=== PATIENT | female | born 1940 | race Caucasian/White ===

== ENCOUNTER 2018-09-26 05:52 | Inpatient (IN) | payer MEDICARE ==
[2018-09-26] MEDS ORDERED: ALBUTEROL SO4 2.5/IPRATROPIUM 0.5 INH SOL 3 ML VIAL.NEB. NEB ONE (05:57)
[2018-09-26] MEDS ORDERED: NITROGLYCERIN 2% OINTMENT - 1GM PACKET TD ONE (05:57)
[2018-09-26] MEDS ORDERED: FUROSEMIDE 40 MG/4 ML INJECTABLE VIAL IVPUSH ONE (05:57)
[2018-09-26] MEDS ORDERED: methylPREDNISolone NA SUCC 125 MG/2 ML VIAL IVPUSH ONE (05:58)
[2018-09-26] MEDS ORDERED: NITROGLYCERIN 25MG/D5W 250ML 25 MG/250 ML ML IVPB SCH (06:00)
--- NOTE | 2018-09-26 06:08 | PDOC ---
Attending Attestation - Resident Resident Name: Campos Mcdermott - ED Attending Attestation I have performed the following: I have examined & evaluated the patient, The case was reviewed & discussed with the resident, I agree w/resident's findings & plan - HPI HPI: 09/26/18 06:39 78-year-old female with a history of COPD and CHF with acute onset of shortness of breath accompanied by family and arriving by ambulance in moderate respiratory distress - Physicial Exam PE: 09/26/18 06:40 GENERAL: Awake, in moderate distress HEAD: No signs of trauma EYES: ENT:clear without exudates. Moist mucosa NECK: Normal ROM, LUNGS:. moderate respiratory distress with inc work of breathing, crackles and wheezing b/l HEART: tachycardic and regular ABDOMEN: Soft, distended with large ventral hernia CHEST WALL: BACK: No midline tenderness. EXTREMITIES:. No erythema, or tenderness, 2 plus pedal edema NEUROLOGICAL: alert, o x 3 SKIN: Warm, Dry - Critical Care Time Total Critical Care Time: 60 Critical Care Statement: The care of this patient involved high complexity decision making to prevent further life threatening deterioration of the patient 's condition and/or to evaluate & treat vital organ system(s) failure or risk of failure. - Medical Decision Making 09/26/18 06:45 78-year-old female with shortness of breath Chest x-ray consistent with pulmonary edema with right pleural effusion Lasix 60 mg, nitro drip titrated from 10 mics per minute as well as slightly Medrol 125 mg and a DuoNeb have been given At 6:40 AM on reevaluation patient is improved Arterial blood gas suggests respiratory acidosis BiPAP in place with 40% oxygen, respiratory rate decreased to 2 patient's hyperventilation Plan for admission to ICU for further management Family at the bedside
[2018-09-26 06:30] LABS: BASO % 0.7 % (0-2.0); EOS % 5.5 % (0-4.5); HEMOGLOBIN 14.4 GM/dL (10.7-15.3); LYMPH % 22.1 % (8-40); MCH 31.7 pg (25.7-33.7); MCHC 32.7 g/dl (32.0-36.0); MEAN CELL VOLUME 96.8 fl (80-96); MONO % 7.8 % (3.8-10.2); NEUT % 63.9 % (42.8-82.8); PLATELET COUNT 256 K/MM3 (134-434); RBC 4.55 M/mm3 (3.60-5.2); RDW 13.1 % (11.6-15.6); WHITE BLOOD COUNT 15.4 K/mm3 (4.0-10.0)
[2018-09-26] MEDS ORDERED: ONDANSETRON 4 MG/2 ML VIAL ONE ×2 (06:31→07:41)
[2018-09-26] MEDS ORDERED: ONDANSETRON 4 MG/2 ML VIAL IVPUSH ONE ×2 (06:31→07:39)
[2018-09-26 06:34] LABS: ARTERIAL BLD GAS O2 SATURATION 95.6 % (95-98); ARTERIAL BLOOD GAS BASE EXCESS -3.1 meq/l (-2-2); ARTERIAL BLOOD GAS PCO2 67.7 mmHg (35-45); ARTERIAL BLOOD GAS PO2 95.2 mmHg (80-105); ARTERIAL BLOOD GAS pH 7.21 (7.35-7.45)
[2018-09-26 06:52] LABS: INR 0.97 (0.83-1.09); PROTHROMBIN TIME (PATIENT) 11.4 SEC (9.7-13.0)
--- NOTE | 2018-09-26 06:52 | PDOC ---
History of Present Illness - General Chief Complaint: Shortness of Breath Stated Complaint: SOB Time Seen by Provider: 09/26/18 05:54 History Source: Patient, Family, Old Records Exam Limitations: Clinical Condition - History of Present Illness Initial Comments: HPI: 78 y/o female presenting to [facility] ER in respiratory distress. Daughter at bedside reports she was called to the pts bedroom approx. 20 min prior to arrival. Pt breathing fast and complaining of difficulty breathing. Denied chest pain. Mother was in normal state of health prior to this morning. Believes mother has a h/o of CHF and COPD. Reports mother is being treated for a UTI discovered at clinic. Unknown antibiotic. Does not know if mother has undergoing cardiac testing recently. S/p angioplasty [address] [facility]. Pt does not follow with a ged tutor. PCP: Dr. Arvizu Medical Hx: - CHF - COPD - Diabetes, managed with insulin - HTN - Hypothyroidism Surgical Hx: - Hysterectomy - Appendectomy Review of Systems: Unable to obtain secondary to pt condition Physical Examination: Constitutional: Elderly adult female in acute respiratory distress. Found sitting upright on hospital bed. Alert . Unable to answer questions secondary to tachypnea. Head: Normocephalic. No obvious external signs of trauma. Cardiovascular / Chest: Tachycardic rate and regular rhythm. No murmur, rubs, clicks, or gallops. Peripheral pulses: radial pulses full. Respiratory: Breathing rapid and shallow. Retractions and abdominal breathing. Equal chest rise and fall. Decreased breath sounds throughout all cody with trace end-expiratory wheeze. Clear to auscultation bilaterally. Gastrointestinal: abdomen exam limited by large pannus. Large, easily reducible umbilical hernia. Neuro: Alert. Moving all four extremities spontaneously. Skin: Warm, dry, and intact. No diaphoresis. Psych: Affect: concerned / anxious. MDM: *Reviewed vital signs, nursing notes, and prior visit documentation (if available). 78 y/o female presenting in acute respiratory distress. Hypertensive and mildly tachycardic. Afebrile. Became hypoxia on room air. Physical exam as described above. Nonfocal. History concerning for CHF vs COPD exacerbation. BiPAP applied , which improved hypoxia. Duo nebs, solu-medrol, nitropaste, lasix, and ondansetron administered. EKG unremarkable for ischemic changes. Labs drawn. CXR obtained. Pt signed out to resident Dr. Ayala after she was verbally appraised of the pt s HPI, current ED course, and plan of management. Will f/u on pending labs and imaging. Anticipate admission. Campos Mcdermott M.D., PGY1 Emergency Medicine Resident Past History - Past Medical History Allergies/Adverse Reactions: Allergies Allergy/AdvReac Type Severity Reaction Status Date / Time Sulfa (Sulfonamide Allergy Verified 09/26/18 06:16 Antibiotics) Home Medications: Ambulatory Orders Aspirin [ASA -] 81 mg PO DAILY 09/26/18 Furosemide [Lasix -] 40 mg PO DAILY 09/26/18 Gabapentin [Neurontin -] 100 mg PO Q8H 09/26/18 Insulin Glargine,Hum.rec.anlog [Basaglar Kwikpen U-100] 50 unit SQ DAILY Insulin Lispro [Humalog] See Protocol SQ AC PRN 09/26/18 Metoprolol Succinate [Toprol XL -] 25 mg PO BID 09/26/18 Oxybutynin Chloride 5 mg PO DAILY 09/26/18 Potassium Chloride 10 meq PO DAILY 09/26/18 Amoxicillin/Potassium Clav [Augmentin 875-125 Tablet] 1 each PO BID #10 tablet 09/30/18 Atorvastatin Ca [Lipitor] 40 mg PO HS #30 tablet MDD 1 09/30/18 Insulin Detemir [Levemir Flextouch] 20 unit SQ HS #100 ml MDD 1 09/30/18 Levothyroxine [Synthroid -] 50 mcg PO DAILY@0700 #30 tablet MDD 1 09/30/18 predniSONE [Deltasone -] 30 mg PO DAILY #14 tablet MDD 3 09/30/18 Cardiac Disorders: Yes ([facility]) COPD: Yes Diabetes: Yes HTN: Yes Hypercholesterolemia: Yes Thyroid Disease: Yes - Surgical History Appendectomy: Yes Cardiac Surgery: Yes (angioplasty) - Suicide/Smoking/Psychosocial Hx Smoking History: Never smoked Have you smoked in the past 12 months: No Information on smoking cessation initiated: No Hx Alcohol Use: No Drug/Substance Use Hx: No Substance Use Type: None *Physical Exam - Vital Signs Last Vital Signs Temp Pulse Resp BP Pulse Ox 98.9 F 109 H 24 H 171/100 H 98 09/26/18 05:57 09/26/18 05:57 09/26/18 05:57 09/26/18 05:57 09/26/18 06:00 ED Treatment Course - LABORATORY CBC & Chemistry Diagram: 09/29/18 05:30 09/29/18 05:30 - ADDITIONAL ORDERS Additional order review: Laboratory Results 09/26/18 06:03 Anticoagulation Therapy No Result Required. Puncture Site No Result Required. ABG pH 7.21 L ABG pCO2 at Pt Temp 67.7 H ABG pO2 at Pt Temp 95.2 ABG HCO3 26.3 ABG O2 Sat (Measured) 95.6 ABG O2 Content 20.3 ABG Base Excess -3.1 L Yuri Test No Result Required. O2 Delivery Device No Result Required. Oxygen Flow Rate No Result Required. Vent Mode No Result Required. Vent Rate No Result Required. Mechanical Rate No Result Required. Pressure Support Vent No Result Required. - RADIOLOGY Radiology Studies Ordered: Category Date Time Status CHEST X-RAY PORTABLE* [RAD] Stat Radiology 09/26/18 05:55 Ordered - Medications Given in the ED: ED Medications Discontinued Medications Generic Name Dose Route Start Last Admin Trade Name Johnq PRN Reason Stop Dose Admin Albuterol/Ipratropium 2 amp 09/26/18 05:57 09/26/18 06:14 Duoneb - NEB 09/26/18 05:58 2 amp ONCE ONE Administration Furosemide 60 mg 09/26/18 05:57 09/26/18 06:14 Lasix Injection - IVPUSH 09/26/18 05:58 60 mg ONCE ONE Administration Methylprednisolone Sodium Succinate 125 mg 09/26/18 05:58 09/26/18 06:14 Solu-Medrol - IVPUSH 09/26/18 05:59 125 mg ONCE ONE Administration Nitroglycerin 1 inch 09/26/18 05:57 09/26/18 06:14 Nitro-Bid 2% Paste - TD 09/26/18 05:58 1 inch ONCE ONE Administration Ondansetron HCl 4 mg 09/26/18 06:31 09/26/18 06:40 Zofran Injection IVPUSH 09/26/18 06:32 4 mg ONCE ONE Administration *DC/Admit/Observation/Transfer Diagnosis at time of Disposition: Pneumonia, Pulmonary edema, Respiratory acidosis, Leukocytosis, Lactic acidosis - Discharge Dispostion Disposition: HOME Condition at time of disposition: Stable - Referrals - Patient Instructions - Post Discharge Activity
--- NOTE | 2018-09-26 07:26 | PDOC ---
"*Physical Exam - Vital Signs Last Vital Signs Temp Pulse Resp BP Pulse Ox 98.9 F 109 H 24 H 171/100 H 98 09/26/18 05:57 09/26/18 05:57 09/26/18 05:57 09/26/18 05:57 09/26/18 06:00 ED Treatment Course - LABORATORY CBC & Chemistry Diagram: 09/26/18 06:03 09/26/18 06:03 - ADDITIONAL ORDERS Additional order review: Laboratory Results 09/26/18 09/26/18 06:03 06:03 PT with INR 11.40 INR 0.97 PTT (Actin FS) 36.0 Anticoagulation Therapy No Result Required. Puncture Site No Result Required. ABG pH 7.21 L ABG pCO2 at Pt Temp 67.7 H ABG pO2 at Pt Temp 95.2 ABG HCO3 26.3 ABG O2 Sat (Measured) 95.6 ABG O2 Content 20.3 ABG Base Excess -3.1 L Yuri Test No Result Required. O2 Delivery Device No Result Required. Oxygen Flow Rate No Result Required. Vent Mode No Result Required. Vent Rate No Result Required. Mechanical Rate No Result Required. Pressure Support Vent No Result Required. 09/26/18 06:03 RBC 4.55 MCV 96.8 H MCHC 32.7 RDW 13.1 MPV 10.0 Neutrophils % 63.9 D Lymphocytes % 22.1 D Monocytes % 7.8 Eosinophils % 5.5 H D Basophils % 0.7 - Medications Given in the ED: ED Medications Discontinued Medications Generic Name Dose Route Start Last Admin Trade Name Johnq PRN Reason Stop Dose Admin Albuterol/Ipratropium 2 amp 09/26/18 05:57 09/26/18 06:14 Duoneb - NEB 09/26/18 05:58 2 amp ONCE ONE Administration Furosemide 60 mg 09/26/18 05:57 09/26/18 06:14 Lasix Injection - IVPUSH 09/26/18 05:58 60 mg ONCE ONE Administration Methylprednisolone Sodium Succinate 125 mg 09/26/18 05:58 09/26/18 06:14 Solu-Medrol - IVPUSH 09/26/18 05:59 125 mg ONCE ONE Administration Nitroglycerin 1 inch 09/26/18 05:57 09/26/18 06:14 Nitro-Bid 2% Paste - TD 09/26/18 05:58 1 inch ONCE ONE Administration Ondansetron HCl 4 mg 09/26/18 06:31 09/26/18 06:40 Zofran Injection IVPUSH 09/26/18 06:32 4 mg ONCE ONE Administration Medical Decision Making - Medical Decision Making 09/26/18 07:29 78 year old female with PMH CHF, past nicotine use (35 pack years), HTN, hypothyroidism, DM presented to ED for SOB. Pulmonary edema noted on CXR and bedside US. No pleural effusions. Bilateral infiltrates on CXR. Pt was being treated for UTI with Nitrofurantion, was recently changed to unknown antibiotic that she has not started yet. Initial Vital Signs Temp Pulse Resp BP Pulse Ox 98.9 F 109 H 24 H 171/100 H 98 09/26/18 05:57 09/26/18 05:57 09/26/18 05:57 09/26/18 05:57 09/26/18 05:57 Afebrile Tachycardic Tachypneic Hypertensive No hypoxia on room air Medications given: Solumedrol, Duonebs, Lasix 60 mg IV, Zofran 4 mg IV EKG performed at: 0552: rate 112, regular rhythm, left axis, incomplete LBBB, flipped T in I/aVL. -No prior to compare Official CXR report: Single view of the chest is submitted. Since the prior study, there are new congestive changes with prominent mediastinum and some bibasilar infiltrates with some pleural fluid. Correlation recommended Impression: New congestive changes with bibasilar findings. Vital Signs Temperature 98.9 F 09/26/18 05:57 Pulse Rate 88 09/26/18 06:50 Respiratory Rate 26 H 09/26/18 06:50 Blood Pressure 204/186 H 09/26/18 06:50 O2 Sat by Pulse Oximetry (%) 92 L 09/26/18 06:50 Pt was placed on bipap and nitro drip at 10 mcg. Pt was titrated up to 100 mcg, was very sensitive to mediation, BP was 80/50, pt was titrated back down to 10 mcg on nitro drip. Laboratory Results - last 24 hr 09/26/18 09/26/18 09/26/18 06:03 06:03 06:03 WBC 15.4 H RBC 4.55 Hgb 14.4 Hct 44.0 MCV 96.8 H MCH 31.7 MCHC 32.7 RDW 13.1 Plt Count 256 D MPV 10.0 Absolute Neuts (auto) 9.8 H Neutrophils % 63.9 D Lymphocytes % 22.1 D Monocytes % 7.8 Eosinophils % 5.5 H D Basophils % 0.7 Nucleated RBC % 0 PT with INR 11.40 INR 0.97 PTT (Actin FS) 36.0 Anticoagulation Therapy No Result Required. Puncture Site No Result Required. ABG pH 7.21 L ABG pCO2 at Pt Temp 67.7 H ABG pO2 at Pt Temp 95.2 ABG HCO3 26.3 ABG O2 Sat (Measured) 95.6 ABG O2 Content 20.3 ABG Base Excess -3.1 L Yuri Test No Result Required. O2 Delivery Device No Result Required. Oxygen Flow Rate No Result Required. Vent Mode No Result Required. Vent Rate No Result Required. Mechanical Rate No Result Required. Pressure Support Vent No Result Required. Leukocytosis with left shift. Respiratory acidosis. Medications ordered: Ceftriaxone 1g IV once, Azithromycin 500 mg IV once -Pt has not been hospitalized in over 6 months 09/26/18 07:48 Vital Signs Temperature 98.9 F 09/26/18 05:57 Pulse Rate 87 09/26/18 08:15 Respiratory Rate 22 H 09/26/18 08:15 Blood Pressure 99/61 09/26/18 08:15 O2 Sat by Pulse Oximetry (%) 94 09/26/18 08:15 Nitro discontinued. Pt taken off of BIPAP. Pt placed on 6L O2. 09/26/18 08:17 CMP Sodium 134 mmol/L (136-145) L 09/26/18 06:03 Potassium 4.2 mmol/L (3.5-5.1) 09/26/18 06:03 Chloride 98 mmol/L (98-107) 09/26/18 06:03 Carbon Dioxide 28 mmol/L (21-32) 09/26/18 06:03 Anion Gap 8 MMOL/L (8-16) 09/26/18 06:03 BUN 27 mg/dL (7-18) H 09/26/18 06:03 Creatinine 0.9 mg/dL (0.55-1.3) 09/26/18 06:03 Est GFR (CKD-EPI)AfAm 71.98 09/26/18 06:03 Est GFR (CKD-EPI)NonAf 62.11 09/26/18 06:03 Random Glucose 222 mg/dL (74-106) H 09/26/18 06:03 Lactic Acid 2.7 mmol/L (0.4-2.0) H* 09/26/18 06:03 Calcium 9.5 mg/dL (8.5-10.1) 09/26/18 06:03 Phosphorus 4.2 mg/dL (2.5-4.9) 09/26/18 06:03 Magnesium 1.9 mg/dL (1.8-2.4) 09/26/18 06:03 Total Bilirubin 0.5 mg/dL (0.2-1) 09/26/18 06:03 AST 25 U/L (15-37) 09/26/18 06:03 ALT 21 U/L (13-61) 09/26/18 06:03 Alkaline Phosphatase 146 U/L (45-117) H 09/26/18 06:03 Creatine Kinase 150 U/L (26-192) 09/26/18 06:03 Troponin I < 0.02 ng/ml (0.00-0.05) 09/26/18 06:03 B-Natriuretic Peptide 93.6 pg/ml (5-450) 09/26/18 06:03 Total Protein 8.2 g/dl (6.4-8.2) 09/26/18 06:03 Albumin 4.0 g/dl (3.4-5.0) 09/26/18 06:03 Mild hyponatremia. No ARMANDO. Lactic acidosis. No transaminitis. Normal troponin. No BNP elevation. Pt to be admitted for pneumonia, pulmonary edema, lactic acidosis. Pending admission. 09/26/18 08:30 Dr. Edgar sutherland. Pt complaining of headache and tooth pain. Medications ordered: Tylenol IV 09/26/18 10:35 Vital Signs Temperature 98.9 F 09/26/18 05:57 Pulse Rate 86 09/26/18 09:25 Respiratory Rate 22 H 09/26/18 09:25 Blood Pressure 107/92 09/26/18 09:25 O2 Sat by Pulse Oximetry (%) 94 L 09/26/18 09:25 BP stable off nitro drip. Repeat ABG: pH 7.3 | pCO2 52.3 -Respiratory acidosis improved from BIPAP treatment *DC/Admit/Observation/Transfer Diagnosis at time of Disposition: Pneumonia, Pulmonary edema, Respiratory acidosis, Leukocytosis, Lactic acidosis - Discharge Dispostion Condition at time of disposition: Stable Decision to Admit order: Yes - Referrals - Patient Instructions - Post Discharge Activity"
[2018-09-26] MEDS ORDERED: AZITHROMYCIN IVPB 500 MG in DEXTROSE 5%-WATER - 250 ML IVPB ONE (07:28)
[2018-09-26] MEDS ORDERED: CEFTRIAXONE 1 GM in DEXTROSE 5%-WATER - 100 ML IVPB ONE (07:28)
[2018-09-26 07:49] LABS: ALK PHOS 146 U/L (45-117); ANION GAP 8 MMOL/L (8-16); BILIRUBIN,TOTAL 0.5 mg/dL (0.2-1); BLOOD UREA NITROGEN 27 mg/dL (7-18); CALCIUM 9.5 mg/dL (8.5-10.1); CHLORIDE 98 mmol/L (98-107); CO2 28 mmol/L (21-32); CREATININE 0.9 mg/dL (0.55-1.3); GLUCOSE,RANDOM 222 mg/dL (74-106); MAGNESIUM 1.9 mg/dL (1.8-2.4); N-TERMINAL BNP 93.6 pg/ml (5-450); PHOSPHOROUS 4.2 mg/dL (2.5-4.9); POTASSIUM 4.2 mmol/L (3.5-5.1); SGOT/AST 25 U/L (15-37); SGPT/ALT 21 U/L (13-61); SODIUM 134 mmol/L (136-145); TOT PROT 8.2 g/dl (6.4-8.2)
[2018-09-26] MEDS ORDERED: AZITHROMYCIN IVPB 500 MG/250 ML BAG IVPB ONE (08:02)
[2018-09-26] MEDS ORDERED: CEFTRIAXONE 1 GM/50 ML BAG ONE (08:03)
[2018-09-26] MEDS ORDERED: ACETAMINOPHEN 1000 MG/100 ML VIAL (NON FORMULARY) IVPB ONE (08:31)
[2018-09-26 09:06] LABS: ARTERIAL BLD GAS O2 SATURATION 93.8 % (95-98); ARTERIAL BLOOD GAS BASE EXCESS -1.5 meq/l (-2-2); ARTERIAL BLOOD GAS PCO2 52.3 mmHg (35-45); ARTERIAL BLOOD GAS PO2 75.4 mmHg (80-105)
[2018-09-26 09:17] LABS: ALLENS TEST POSITIVE
[2018-09-26 10:07] LABS: CARBOXYHEMOGLOBIN 1.3 % (0-2)
--- NOTE | 2018-09-26 11:02 | HP ---
Admitting History and Physical - Primary Care Physician PCP: Sloan Arvizu - Admission Chief Complaint: came in for Shortness of breath since last night History of Present Illness: 78 y/o female presenting to [facility] ER in respiratory distress. Daughter at bedside reports she was called to the pts bedroom approx. 20 min prior to arrival. Pt breathing fast and complaining of difficulty breathing. Denied chest pain. Mother was in normal state of health prior to this morning. Believes mother has a h/o of CHF and COPD. per patient last night she felt short of breath and had difficulty breathing when she got up to make coffee , she has been noticing increase leg swelling as well no fever at home , she has been on antibiotic for last one week for UI but doesnot remeber the name in ER solumedrol, rocephin, albuterol,lasix, and nitro History Source: Patient - Past Medical History Cardiovascular: Yes: CHF Pulmonary: Yes: COPD - Smoking History Smoking history: Never smoked Have you smoked in the past 12 months: No - Alcohol/Substance Use Hx Alcohol Use: No Home Medications - Allergies Allergies/Adverse Reactions: Allergies Allergy/AdvReac Type Severity Reaction Status Date / Time Sulfa (Sulfonamide Allergy Verified 09/26/18 06:16 Antibiotics) - Home Medications Home Medications: Ambulatory Orders Aspirin [ASA -] 81 mg PO DAILY 09/26/18 Furosemide [Lasix -] 40 mg PO DAILY 09/26/18 Gabapentin [Neurontin -] 100 mg PO Q8H 09/26/18 Insulin Glargine,Hum.rec.anlog [Basaglar Kwikpen U-100] 50 unit SQ DAILY Insulin Lispro [Humalog] See Protocol SQ AC PRN 09/26/18 Levothyroxine [Synthroid -] 75 mcg PO DAILY 09/26/18 Lisinopril [Prinivil -] 40 mg PO DAILY 09/26/18 Metformin HCl [Glucophage] 1,000 mg PO DAILY 09/26/18 Metoprolol Succinate [Toprol Xl -] 25 mg PO BID 09/26/18 Oxybutynin Chloride 5 mg PO DAILY 09/26/18 Potassium Chloride 10 meq PO DAILY 09/26/18 Review of Systems - Review of Systems Respiratory: reports: SOB (better) Physical Examination Vital Signs: Vital Signs Temperature 98.9 F 09/26/18 05:57 Pulse Rate 86 09/26/18 09:25 Respiratory Rate 22 H 09/26/18 09:25 Blood Pressure 107/92 09/26/18 09:25 O2 Sat by Pulse Oximetry (%) 94 L 09/26/18 09:25 Constitutional: Yes: Calm Neck: Yes: Thyromegaly Cardiovascular: Yes: S1, S2 Respiratory: Yes: Diminished, On Nasal O2 Gastrointestinal: Yes: Normal Bowel Sounds, Soft Edema: Yes (much improved) Neurological: Yes: Alert, Oriented Labs: CBC, BMP 09/26/18 06:03 09/26/18 06:03 Imaging - Results Chest X-ray: Report Reviewed (new congestive changes) Problem List - Problems (1) Respiratory acidosis Assessment/Plan: with lactic acidosis iv lasix input output monitoring daily weights oxygen keep S02>90% pulmonary consult trend ABG medrol iv- h/o of copd bronchodilators inc leg swelling_ check echo to look at ejection fraction,cardiology consult iv lasix bipap Code(s): E87.2 - ACIDOSIS (2) Urinary tract infection Assessment/Plan: send UA and urine culture was on abx at home for uti Code(s): N39.0 - URINARY TRACT INFECTION, SITE NOT SPECIFIED (3) Lactic acidosis Assessment/Plan: trend lactic acid Code(s): E87.2 - ACIDOSIS (4) Leukocytosis Assessment/Plan: secondary to possible infection iv abx braod coverage trend wbc trend lactic acid Code(s): D72.829 - ELEVATED WHITE BLOOD CELL COUNT, UNSPECIFIED (5) Leg edema Assessment/Plan: got iv lasix 60mg today daily weights Code(s): R60.0 - LOCALIZED EDEMA (6) Diabetes Assessment/Plan: sliding scale bgm levemir hgba1c Code(s): E11.9 - TYPE 2 DIABETES MELLITUS WITHOUT COMPLICATIONS Qualifiers: Diabetes mellitus type: type 2 (7) Hypothyroid Assessment/Plan: synthroid 75mcg check tsh Code(s): E03.9 - HYPOTHYROIDISM, UNSPECIFIED
--- NOTE | 2018-09-26 12:19 | CON.PULM ---
Consult Consult Specialty:: PULMONARY Referred by:: Dr Buck Reason for Consultation:: shortness of breath - History of Present Illness Chief Complaint: shortness of breath History of Present Illness: 78yo female with h/o HTN, DM, hypothyroidism, CAD s/p remote PCI, CHF who presents with sudden onset of shortness of breath overnight while she was sitting. No chest pain or palpitations. No significant cough or wheezing. She has been experiencing subjective fevers and chills, was being treated with antibiotics for UTI. She is a remote smoker, quit 17 years ago. Denies history of asthma or COPD. Does not use any inhalers at home. Reports chronic leg swelling L>R but currently at baseline. - History Source History Provided By: Patient, Family Member, Medical Record Limitations to Obtaining History: Clinical Condition - Past Medical History Cardio/Vascular: Yes: CHF Pulmonary: Yes: COPD - Alcohol/Substance Use Hx Alcohol Use: No - Smoking History Smoking history: Never smoked Have you smoked in the past 12 months: No Home Medications - Allergies Allergies/Adverse Reactions: Allergies Allergy/AdvReac Type Severity Reaction Status Date / Time Sulfa (Sulfonamide Allergy Verified 09/26/18 06:16 Antibiotics) - Home Medications Home Medications: Ambulatory Orders Aspirin [ASA -] 81 mg PO DAILY 09/26/18 Furosemide [Lasix -] 40 mg PO DAILY 09/26/18 Gabapentin [Neurontin -] 100 mg PO Q8H 09/26/18 Insulin Glargine,Hum.rec.anlog [Basaglar Kwikpen U-100] 50 unit SQ DAILY Insulin Lispro [Humalog] See Protocol SQ AC PRN 09/26/18 Levothyroxine [Synthroid -] 75 mcg PO DAILY 09/26/18 Lisinopril [Prinivil -] 40 mg PO DAILY 09/26/18 Metformin HCl [Glucophage] 1,000 mg PO DAILY 09/26/18 Metoprolol Succinate [Toprol Xl -] 25 mg PO BID 09/26/18 Oxybutynin Chloride 5 mg PO DAILY 09/26/18 Potassium Chloride 10 meq PO DAILY 09/26/18 Review of Systems - Review of Systems Constitutional: reports: Chills, Fever, Weakness Eyes: denies: Recent Change in Vision HENT: denies: Nasal Congestion, Throat Pain Neck: denies: Stiffness, Tenderness Cardiovascular: reports: Edema, Shortness of Breath. denies: Chest Pain, Palpitations Respiratory: reports: Exercise Intolerance, SOB on Exertion. denies: Cough, Hemoptysis, Wheezing Gastrointestinal: denies: Abdominal Pain, Nausea, Vomiting Genitourinary: denies: Dysuria, Hematuria Neurological: denies: Dizziness, Headache Endocrine: denies: Unexplained Weight Loss Physical Exam Vital Sings: Vital Signs Temperature 99.4 F 09/26/18 11:48 Pulse Rate 86 09/26/18 09:25 Respiratory Rate 22 H 09/26/18 09:25 Blood Pressure 107/92 09/26/18 09:25 O2 Sat by Pulse Oximetry (%) 97 09/26/18 11:00 Constitutional: Yes: Mild Distress Eyes: Yes: Conjunctiva Clear, EOM Intact HENT: Yes: Atraumatic, Normocephalic Neck: Yes: Supple, Trachea Midline Cardiovascular: Yes: Regular Rate and Rhythm Respiratory: Yes: Rales (bibasilar) ...Clubbing: No Gastrointestinal: Yes: Normal Bowel Sounds, Soft. No: Tenderness Edema: Yes Neurological: Yes: Alert, Oriented Labs: CBC, BMP 09/26/18 06:03 09/26/18 06:03 ABG Results ABG pH 7.30 (7.35-7.45) L 09/26/18 08:43 ABG pCO2 at Pt Temp 52.3 mmHg (35-45) H 09/26/18 08:43 ABG pO2 at Pt Temp 75.4 mmHg (80-105) L 09/26/18 08:43 ABG HCO3 25.1 mmol/L (22-27) 09/26/18 08:43 ABG O2 Sat (Measured) 93.8 % (95-98) L 09/26/18 08:43 ABG O2 Content 18.0 % vol (15-22) 09/26/18 08:43 ABG Base Excess -1.5 meq/l (-2-2) 09/26/18 08:43 Imaging - Results Chest X-ray: Report Reviewed, Image Reviewed (bibasilar infiltrates) Assessment/Plan Acute Hypercapneic Respiratory Failure Pneumonia r/o Acute COPD Exacerbation Lactic Acidosis r/o CHF HTN DM Hypothyroidism - agree with antibiotic coverage - f/u cultures, urinary antigens - inhaled bronchodilators - agree with short course of medrol given acute hypercapnea - O2 to keep SpO2 >90% - BiPAP as needed to assist in work of breathing - echocardiogram - received lasix in ER, BNP normal, would hold off on further diuretics at this time - monitor urine output, creatinine - monitor CXR - outpt PFTs - DVT prophylaxis Thank you for this consult Stiven White MD
[2018-09-26] MEDS: ALBUTEROL SO4 2.5/IPRATROPIUM 0.5 INH SOL 3 ML VIAL.NEB. NEB SCH ×2 (12:25→19:35)
--- NOTE | 2018-09-26 12:36 | CON.CARD ---
Consult Consult Specialty:: Cardiology Referred by:: Edgar Reason for Consultation:: SOB - History of Present Illness Chief Complaint: sob History of Present Illness: 78yo female with h/o HTN, DM, hypothyroidism, CAD s/p remote PCI (last stress test [address] Vito blanca), CHF who presents with sudden onset of shortness of breath overnight while she was sitting. No chest pain or palpitations. No significant cough or wheezing. She has been experiencing subjective fevers and chills, was being treated with antibiotics for UTI. She is a remote smoker, quit 17 years ago. Denies history of asthma or COPD. Does not use any inhalers at home. Reports chronic leg swelling L>R but currently improved over her baseline. - History Source History Provided By: Patient, Family Member, Medical Record - Past Medical History Cardio/Vascular: Yes: CHF Pulmonary: Yes: COPD - Alcohol/Substance Use Hx Alcohol Use: No - Smoking History Smoking history: Never smoked Have you smoked in the past 12 months: No Home Medications - Allergies Allergies/Adverse Reactions: Allergies Allergy/AdvReac Type Severity Reaction Status Date / Time Sulfa (Sulfonamide Allergy Verified 09/26/18 06:16 Antibiotics) - Home Medications Home Medications: Ambulatory Orders Aspirin [ASA -] 81 mg PO DAILY 09/26/18 Furosemide [Lasix -] 40 mg PO DAILY 09/26/18 Gabapentin [Neurontin -] 100 mg PO Q8H 09/26/18 Insulin Glargine,Hum.rec.anlog [Basaglar Kwikpen U-100] 50 unit SQ DAILY Insulin Lispro [Humalog] See Protocol SQ AC PRN 09/26/18 Levothyroxine [Synthroid -] 75 mcg PO DAILY 09/26/18 Lisinopril [Prinivil -] 40 mg PO DAILY 09/26/18 Metformin HCl [Glucophage] 1,000 mg PO DAILY 09/26/18 Metoprolol Succinate [Toprol Xl -] 25 mg PO BID 09/26/18 Oxybutynin Chloride 5 mg PO DAILY 09/26/18 Potassium Chloride 10 meq PO DAILY 09/26/18 Review of Systems - Review of Systems Constitutional: reports: Chills, Fever Eyes: reports: No Symptoms HENT: reports: No Symptoms Neck: reports: No Symptoms Cardiovascular: reports: Shortness of Breath Respiratory: reports: SOB Gastrointestinal: reports: No Symptoms Genitourinary: reports: Burning Musculoskeletal: reports: No Symptoms Integumentary: reports: Change in Color Vital Signs: Vital Signs Temperature 99.4 F 09/26/18 11:48 Pulse Rate 86 09/26/18 09:25 Respiratory Rate 22 H 09/26/18 09:25 Blood Pressure 107/92 09/26/18 09:25 O2 Sat by Pulse Oximetry (%) 97 09/26/18 11:00 Constitutional: Yes: No Distress, Calm Eyes: Yes: Conjunctiva Clear, EOM Intact HENT: Yes: Atraumatic, Normocephalic Neck: Yes: Supple, Trachea Midline Respiratory: Yes: Poor Air Entry Gastrointestinal: Yes: Normal Bowel Sounds, Soft Cardiovascular: Yes: Regular Rate and Rhythm JVD: No Carotid Bruit: No PMI: Non-Displaced Heart Sounds: Yes: S1, S2 Edema: Yes Edema: LLE: 2+, RLE: 1+ Peripheral Pulses WNL: Yes - Other Data Labs, Other Data: CBC, BMP 09/26/18 06:03 09/26/18 06:03 INR, PTT INR 0.97 (0.83-1.09) 09/26/18 06:03 Troponin, BNP 09/26/18 06:03 Troponin I < 0.02 B-Natriuretic Peptide 93.6 Troponin, BNP 09/26/18 06:03 Troponin I < 0.02 B-Natriuretic Peptide 93.6 Imaging - Results Chest X-ray: Report Reviewed EKG: Report Reviewed Assessment/Plan 78yo female with h/o HTN, DM, hypothyroidism, CAD s/p remote PCI (last stress test [address] Vito Carl normal), CHF who presents with sudden onset of shortness of breath overnight while she was sitting. No chest pain or palpitations. No significant cough or wheezing. She has been experiencing subjective fevers and chills, was being treated with antibiotics for UTI. She is a remote smoker, quit 17 years ago. Denies history of asthma or COPD. Does not use any inhalers at home. Reports chronic leg swelling L>R but currently improved over her baseline. SOB --likely due to COPD, needs further imaging and pulm rx. --CXR read as CHF but poor effort, and low bnp. --echo ordered. --abx and meds per pulmonary. --hold off on further diuresis.
--- NOTE | 2018-09-26 12:53 | EKG ---
Test Reason : Blood Pressure : / mmHG Vent. Rate : 106 BPM Atrial Rate : 106 BPM P-R Int : 128 ms QRS Dur : 096 ms QT Int : 348 ms P-R-T Axes : -04 -60 095 degrees QTc Int : 462 ms POOR DATA QUALITY, INTERPRETATION MAY BE ADVERSELY AFFECTED SINUS TACHYCARDIA LEFT AXIS DEVIATION SEPTAL INFARCT , AGE UNDETERMINED INFERIOR INFARCT , AGE UNDETERMINED ABNORMAL ECG NO PREVIOUS ECGS AVAILABLE Confirmed by DARIO SKY, ARTI ([id number]) on 09/26/2018 12:53:09 PM Referred By: Confirmed By:ARTI BISHOP MD
[2018-09-26 14:29] LABS: EPI CELLS 0.8 /HPF (0-5/HPF); HYALINE CASTS 7 /lpf (0-8); URINE APPEARANCE CLEAR; URINE BACTERIA 76.4 /hpf (NEGATIVE); URINE BILIRUBIN NEGATIVE (NEGATIVE); URINE COLOR YELLOW; URINE GLUCOSE (UA) 2+ (NEGATIVE); URINE KETONE NEGATIVE (NEGATIVE); URINE LEUK ESTERASE NEGATIVE (NEGATIVE); URINE NITRITE NEGATIVE (NEGATIVE); URINE PROTEIN 3+ (NEGATIVE); URINE RBC 3 /hpf (0-4); URINE UROBILINOGEN 0.2 mg/dL (0.2-1.0)
[2018-09-26 15:01] LABS: URINE WBC 22.3 /hpf (0-5)
[2018-09-26] MEDS: INSULIN SLIDING SCALE (NOVOLOG) 1 VIAL SQ SCH ×2 (17:57→22:05)
[2018-09-26] MEDS: methylPREDNISolone NA SUCC 40 MG/1 ML VIAL IVPUSH SCH (18:40)
[2018-09-26 21:25] LABS: EPI CELLS 7.6 /HPF (0-5/HPF); HYALINE CASTS 21 /lpf (0-8); URINE APPEARANCE CLOUDY; URINE BACTERIA 5.9 /hpf (NEGATIVE); URINE BILIRUBIN NEGATIVE (NEGATIVE); URINE COLOR YELLOW; URINE GLUCOSE (UA) 3+ (NEGATIVE); URINE KETONE NEGATIVE (NEGATIVE); URINE LEUK ESTERASE 1+ (NEGATIVE); URINE NITRITE NEGATIVE (NEGATIVE); URINE PROTEIN 1+ (NEGATIVE); URINE RBC 8 /hpf (0-4); URINE UROBILINOGEN 0.2 mg/dL (0.2-1.0); URINE WBC 89 /hpf (0-5)
[2018-09-26] MEDS: HEPARIN NA (PORCINE) 5,000 UNITS/ML 1ML VIAL SQ SCH (22:05)
[2018-09-26] MEDS ORDERED: IBUPROFEN 400 MG TABLET (FP) PO ONE (22:09)
[2018-09-27] MEDS: methylPREDNISolone NA SUCC 40 MG/1 ML VIAL IVPUSH SCH ×3 (03:33→18:30)
[2018-09-27] MEDS: INSULIN SLIDING SCALE (NOVOLOG) 1 VIAL SQ SCH ×4 (06:45→22:08)
[2018-09-27] MEDS: INSULIN (LEVEMIR) 100 UNITS/ML UNITS SQ SCH (06:45)
[2018-09-27] MEDS ORDERED: LEVOTHYROXINE NA 75 MCG TABLET (FP) PO SCH (07:00)
[2018-09-27] MEDS: ALBUTEROL SO4 2.5/IPRATROPIUM 0.5 INH SOL 3 ML VIAL.NEB. NEB SCH ×4 (08:00→21:00)
[2018-09-27 08:02] LABS: BASO % 0.3 % (0-2.0); EOS % 0.3 % (0-4.5); HEMATOCRIT 36.8 % (32.4-45.2); HEMOGLOBIN 12.5 GM/dL (10.7-15.3); LYMPH % 5.8 % (8-40); MCHC 33.8 g/dl (32.0-36.0); MEAN CELL VOLUME 94.6 fl (80-96); MEAN PLT VOLUME 9.8 fl (7.5-11.1); NEUT % 89.6 % (42.8-82.8); PLATELET COUNT 229 K/MM3 (134-434); RBC 3.89 M/mm3 (3.60-5.2)
[2018-09-27 08:46] LABS: N-TERMINAL BNP 14676.2 pg/ml (5-450)
[2018-09-27 08:57] LABS: ALBUMIN 3.4 g/dl (3.4-5.0); BILIRUBIN,TOTAL 0.4 mg/dL (0.2-1); CREATININE 1.2 mg/dL (0.55-1.3); MAGNESIUM 1.9 mg/dL (1.8-2.4); PHOSPHOROUS 3.9 mg/dL (2.5-4.9); POTASSIUM 4.4 mmol/L (3.5-5.1); TOT PROT 7.2 g/dl (6.4-8.2)
[2018-09-27] MEDS ORDERED: cefTRIAXone SODIUM 1 GM VIAL ONE (10:32)
[2018-09-27] MEDS ORDERED: DEXTROSE 5%-WATER - 50 ML IVPB ONE (10:32)
[2018-09-27] MEDS: AZITHROMYCIN IVPB 500 MG/250 ML BAG IVPB SCH (10:45)
[2018-09-27] MEDS: HEPARIN NA (PORCINE) 5,000 UNITS/ML 1ML VIAL SQ SCH ×2 (10:45→22:10)
[2018-09-27] MEDS: CEFTRIAXONE 1 GM in DEXTROSE 5%-WATER - 50 ML IVPB SCH (10:45)
--- NOTE | 2018-09-27 11:22 | PN ---
Progress Note, Physician History of Present Illness: pulmonary alert,comfortable on bipap,-resp distress,-tachypnea - Current Medication List Current Medications: Active Medications Acetaminophen (Tylenol -) 650 mg PO Q6H PRN PRN Reason: PAIN LEVEL 1-5 Albuterol/Ipratropium (Duoneb -) 1 amp NEB RQID [facility] Last Admin: 09/27/18 08:00 Dose: 1 amp Heparin Sodium (Porcine) (Heparin -) 5,000 unit SQ BID [facility] Last Admin: 09/27/18 10:45 Dose: 5,000 unit Azithromycin (Zithromax 500mg Ivpb (Pre-Docked)) 500 mg in 250 mls @ 250 mls/ hr IVPB DAILY [facility] Last Admin: 09/27/18 10:45 Dose: 250 mls/hr Ceftriaxone Sodium 1 gm/ (Dextrose) 50 mls @ 100 mls/hr IVPB DAILY [facility]; Protocol Last Admin: 09/27/18 10:45 Dose: 100 mls/hr Insulin Aspart (Novolog Vial Sliding Scale -) 1 vial SQ ACHS [facility]; Protocol Last Admin: 09/27/18 06:45 Dose: 8 units Insulin Detemir (Levemir Vial) 30 units SQ AM [facility] Last Admin: 09/27/18 06:45 Dose: 30 units Levothyroxine Sodium (Synthroid -) 75 mcg PO DAILY@0700 [facility] Last Admin: 09/27/18 06:45 Dose: 75 mcg Methylprednisolone Sodium Succinate (Solu-Medrol -) 40 mg IVPUSH Q8H-IV [facility] Last Admin: 09/27/18 10:45 Dose: 40 mg - Objective Vital Signs: Vital Signs Temperature 97.6 F 09/27/18 06:00 Pulse Rate 72 09/27/18 06:00 Respiratory Rate 20 09/27/18 06:00 Blood Pressure 129/66 09/27/18 06:00 O2 Sat by Pulse Oximetry (%) 98 09/27/18 10:16 Constitutional: Yes: Well Nourished, Calm Eyes: Yes: WNL HENT: Yes: WNL Neck: Yes: WNL Cardiovascular: Yes: Regular Rate and Rhythm, S1, S2 Respiratory: Yes: Wheezes (few scattered lizzy wheezes) Gastrointestinal: Yes: Normal Bowel Sounds, Soft Extremities: Yes: WNL Edema: No Labs: CBC, BMP 09/27/18 06:40 05/31/19 06:40 INR, PTT INR 0.97 (0.83-1.09) 09/26/18 06:03 - ....Imaging Cat Scan: Report Reviewed, Image Reviewed Assessment/Plan Assessment/Plan Acute Hypercapneic Respiratory Failure Pneumonia r/o Acute COPD Exacerbation Lactic Acidosis r/o CHF HTN DM Hypothyroidism + Troponin - antibiotics - inhaled bronchodilators - medrol - O2 to keep SpO2 >90% - BiPAP as needed to assist in work of breathing - monitor urine output, creatinine - monitor CXR - outpt PFTs - DVT prophylaxis - trend troponin - f/u abg DR GREEN
--- NOTE | 2018-09-27 11:56 | ECHO ---
Name: TORO REED Exam:Adult Echocardiogram Study Date: 09/27/2018 09:21 AM Age: 78 yrs Reason For Study: chf Height: 59 in Weight: 220 lb BSA: 1.9 m2 MMode/2D Measurements & Calculations IVSd: 0.98 cm Ao root diam: 2.9 cm LVIDd: 4.6 cm LA dimension: 2.9 cm LVIDs: 3.0 cm LVPWd: 0.98 cm LVPWs: 2.0 cm EDV(Teich): 99.8 ml ESV(Kenneyich): 35.8 ml RV S Vladislav: 15.7 cm/sec Doppler Measurements & Calculations MV E max vladislav: 79.5 cm/sec Ao V2 max: 145.5 cm/sec MV A max vladislav: 116.9 cm/sec Ao max P.5 mmHg MV E/A: 0.68 Ao V2 mean: 108.2 cm/sec MV dec time: 0.18 sec Ao mean P.3 mmHg Ao V2 VTI: 33.9 cm LV V1 max P.4 mmHg PA V2 max: 119.4 cm/sec LV V1 mean P.1 mmHg PA max P.7 mmHg LV V1 max: 126.6 cm/sec LV V1 mean: 80.2 cm/sec LV V1 VTI: 27.7 cm Med Peak E' Vladislav: 3.8 cm/sec Med E/e': 20.9 Lat Peak E' Vladislav: 5.2 cm/sec Lat E/e': 15.2 Left Ventricle Ejection Fraction = 50-55%. The transmitral spectral Doppler flow pattern is suggestive of impaired L V relaxation. Mild apical anterior hypokinesis. Right Ventricle The right ventricle is normal in size and function. Atria Normal left and right atrial size and function. Mitral Valve The mitral valve is normal in structure and function. There is no mitral valve stenosis. There is mil d mitral regurgitation. Tricuspid Valve The tricuspid valve is normal in structure and function. There is mild tricuspid regurgitation. Aortic Valve There is mild aortic sclerosis.;. No hemodynamically significant valvular aortic stenosis. Pulmonic Valve The pulmonic valve is not well seen, but is grossly normal. There is no pulmonic valvular stenosis. Great Vessels The aortic root is normal size. Pericardium/Pleura There is no pericardial effusion. Interpretation Summary Ejection Fraction = 50-55%. Mild apical anterior hypokinesis. The transmitral spectral Doppler flow pattern is suggestive of impaired LV relaxation. The right ventricle is normal in size and function. There is mild mitral regurgitation. There is mild tricuspid regurgitation. There is mild aortic sclerosis.; There is no pericardial effusion. MD Riavs *Teodoro 09/27/2018 11:55 AM
[2018-09-27 12:42] LABS: ARTERIAL BLD GAS O2 SATURATION 96.9 % (95-98); ARTERIAL BLOOD GAS PCO2 44.9 mmHg (35-45); ARTERIAL BLOOD GAS PO2 89.4 mmHg (80-105); ARTERIAL BLOOD GAS pH 7.35 (7.35-7.45)
[2018-09-27 12:44] LABS: ALLENS TEST POSITIVE
--- NOTE | 2018-09-27 13:14 | PN ---
Progress Note, Physician Chief Complaint: patient feeling better today ABG is much better used bipap today in morning says her breathing is better - Current Medication List Current Medications: Active Medications Acetaminophen (Tylenol -) 650 mg PO Q6H PRN PRN Reason: PAIN LEVEL 1-5 Albuterol/Ipratropium (Duoneb -) 1 amp NEB RQID [facility] Last Admin: 09/27/18 08:00 Dose: 1 amp Heparin Sodium (Porcine) (Heparin -) 5,000 unit SQ BID [facility] Last Admin: 09/27/18 10:45 Dose: 5,000 unit Azithromycin (Zithromax 500mg Ivpb (Pre-Docked)) 500 mg in 250 mls @ 250 mls/ hr IVPB DAILY [facility] Last Admin: 09/27/18 10:45 Dose: 250 mls/hr Ceftriaxone Sodium 1 gm/ (Dextrose) 50 mls @ 100 mls/hr IVPB DAILY [facility]; Protocol Last Admin: 09/27/18 10:45 Dose: 100 mls/hr Insulin Aspart (Novolog Vial Sliding Scale -) 1 vial SQ ACHS [facility]; Protocol Last Admin: 09/27/18 06:45 Dose: 8 units Insulin Detemir (Levemir Vial) 30 units SQ AM [facility] Last Admin: 09/27/18 06:45 Dose: 30 units Levothyroxine Sodium (Synthroid -) 75 mcg PO DAILY@0700 [facility] Last Admin: 09/27/18 06:45 Dose: 75 mcg Methylprednisolone Sodium Succinate (Solu-Medrol -) 40 mg IVPUSH Q8H-IV [facility] Last Admin: 09/27/18 10:45 Dose: 40 mg - Objective Vital Signs: Vital Signs Temperature 97.6 F 09/27/18 06:00 Pulse Rate 72 09/27/18 06:00 Respiratory Rate 20 09/27/18 06:00 Blood Pressure 129/66 09/27/18 06:00 O2 Sat by Pulse Oximetry (%) 98 09/27/18 10:16 Constitutional: Yes: Calm Cardiovascular: Yes: Regular Rate and Rhythm, S1, S2 Respiratory: Yes: On Nasal O2, Other (scattered rhonchi) Gastrointestinal: Yes: Normal Bowel Sounds, Soft Edema: Yes (improved) Neurological: Yes: Alert, Oriented Labs: CBC, BMP 09/27/18 06:40 09/27/18 06:40 INR, PTT INR 0.97 (0.83-1.09) 09/26/18 06:03 Problem List - Problems (1) Elevated troponin Assessment/Plan: echo noted lipid panel inc LDl will start atorvastatin normal LFT start aspirin elevated troponin will trend it cardiology FU Code(s): R74.8 - ABNORMAL LEVELS OF OTHER SERUM ENZYMES (2) Respiratory acidosis Assessment/Plan: with lactic acidosis-resolved iv lasix given in ER once input output monitoring daily weights oxygen keep S02>90% pulmonary consult noted trend ABG now ph is improved medrol iv- h/o of copd bronchodilators inc leg swelling_ improved Code(s): E87.2 - ACIDOSIS (3) Urinary tract infection Assessment/Plan: send UA and urine culture was on abx at home for uti Microbiology 09/26/18 13:53 Urine For Antigen Detection Legionella Antigen - Final 09/26/18 13:53 Urine For Antigen Detection Streptococcus pneumoniae Antigen (M - Final 09/26/18 13:53 Urine - Urine Borrego Urine Culture - Final NO GROWTH OBTAINED 09/26/18 08:00 Blood - Peripheral Venous Blood Culture - Preliminary NO GROWTH OBTAINED AFTER 24 HOURS, INCUBATION TO CONTINUE FOR 4 DAYS. 09/26/18 08:00 Blood - Peripheral Venous Blood Culture - Preliminary NO GROWTH OBTAINED AFTER 24 HOURS, INCUBATION TO CONTINUE FOR 4 DAYS. Code(s): N39.0 - URINARY TRACT INFECTION, SITE NOT SPECIFIED (4) Lactic acidosis Assessment/Plan: trend lactic acid- now normal Code(s): E87.2 - ACIDOSIS (5) Leukocytosis Assessment/Plan: secondary to possible infection iv abx braod coverage trend wbc trend lactic acid normal on solumedrol chest ct noted cardiomegaly mild congestion and chronic lung disease Code(s): D72.829 - ELEVATED WHITE BLOOD CELL COUNT, UNSPECIFIED (6) Leg edema Assessment/Plan: got iv lasix 60mg in ER and leg edema improved echo: ejection fraction 55% mild apical hypokineais and impaired LV relaxation Code(s): R60.0 - LOCALIZED EDEMA (7) Diabetes Assessment/Plan: sliding scale bgm levemir hgba1c 7.8 Code(s): E11.9 - TYPE 2 DIABETES MELLITUS WITHOUT COMPLICATIONS Qualifiers: Diabetes mellitus type: type 2 (8) Hypothyroid Assessment/Plan: synthroid 75mcg will decrease to 50mcg tsh noted Code(s): E03.9 - HYPOTHYROIDISM, UNSPECIFIED
[2018-09-27] MEDS ORDERED: INSULIN (NOVOLOG) ASPART 100 UNITS/ML 10ML VIAL ONE ×2 (13:15→18:22)
--- NOTE | 2018-09-27 14:04 | PN ---
Progress Note, Physician Chief Complaint: no chest pain. still with respiratory distress. tele negative. History of Present Illness: 78yo female with h/o HTN, DM, hypothyroidism, CAD s/p remote PCI (last stress test [address] Vito Carl normal), CHF who presents with sudden onset of shortness of breath overnight while she was sitting. No chest pain or palpitations. No significant cough or wheezing. She has been experiencing subjective fevers and chills, was being treated with antibiotics for UTI. She is a remote smoker, quit 17 years ago. Denies history of asthma or COPD. Does not use any inhalers at home. Reports chronic leg swelling L>R but currently improved over her baseline. Echo 09/27/18 ef 50-55, mild apical aw akinesis yuliet increasing but no chest pain. - Current Medication List Current Medications: Active Medications Acetaminophen (Tylenol -) 650 mg PO Q6H PRN PRN Reason: PAIN LEVEL 1-5 Albuterol/Ipratropium (Duoneb -) 1 amp NEB RQID [facility] Last Admin: 09/27/18 08:00 Dose: 1 amp Aspirin (Asa -) 81 mg PO DAILY [facility] Atorvastatin Calcium (Lipitor -) 40 mg PO HS [facility] Heparin Sodium (Porcine) (Heparin -) 5,000 unit SQ BID [facility] Last Admin: 09/27/18 10:45 Dose: 5,000 unit Azithromycin (Zithromax 500mg Ivpb (Pre-Docked)) 500 mg in 250 mls @ 250 mls/ hr IVPB DAILY [facility] Last Admin: 09/27/18 10:45 Dose: 250 mls/hr Ceftriaxone Sodium 1 gm/ (Dextrose) 50 mls @ 100 mls/hr IVPB DAILY [facility]; Protocol Last Admin: 09/27/18 10:45 Dose: 100 mls/hr Insulin Aspart (Novolog Vial Sliding Scale -) 1 vial SQ ACHS [facility]; Protocol Last Admin: 09/27/18 13:19 Dose: 8 units Insulin Detemir (Levemir Vial) 30 units SQ AM [facility] Last Admin: 09/27/18 06:45 Dose: 30 units Levothyroxine Sodium (Synthroid -) 50 mcg PO DAILY@0700 [facility] Methylprednisolone Sodium Succinate (Solu-Medrol -) 40 mg IVPUSH Q8H-IV [facility] Last Admin: 09/27/18 10:45 Dose: 40 mg - Objective Vital Signs: Vital Signs Temperature 97.6 F 09/27/18 06:00 Pulse Rate 72 09/27/18 06:00 Respiratory Rate 20 09/27/18 06:00 Blood Pressure 129/66 09/27/18 06:00 O2 Sat by Pulse Oximetry (%) 98 09/27/18 10:16 Constitutional: Yes: No Distress, Calm Eyes: Yes: Conjunctiva Clear, EOM Intact HENT: Yes: Atraumatic, Normocephalic Neck: Yes: Supple, Trachea Midline Cardiovascular: Yes: Regular Rate and Rhythm Respiratory: Yes: CTA Bilaterally Gastrointestinal: Yes: Normal Bowel Sounds, Soft Musculoskeletal: Yes: WNL Extremities: Yes: WNL Edema: No Peripheral Pulses WNL: No Labs: CBC, BMP 09/27/18 06:40 09/27/18 06:40 INR, PTT INR 0.97 (0.83-1.09) 09/26/18 06:03 Assessment/Plan 78yo female with h/o HTN, DM, hypothyroidism, CAD s/p remote PCI (last stress test [address] Vito Carl normal), CHF who presents with sudden onset of shortness of breath overnight while she was sitting. No chest pain or palpitations. No significant cough or wheezing. She has been experiencing subjective fevers and chills, was being treated with antibiotics for UTI. She is a remote smoker, quit 17 years ago. Denies history of asthma or COPD. Does not use any inhalers at home. Reports chronic leg swelling L>R but currently improved over her baseline. SOB --likely due to COPD, needs further imaging and pulm rx. --CXR read as CHF but poor effort, and low bnp. --echo 50-55 mild apical aw hypokinesis --abx and meds per pulmonary. --hold off on further diuresis. --elevated troponin is due to the stress of respiratory distress, not unstable plaque. --no plans for ischemia workup at this juncture. --continue telemetry one more day.
[2018-09-27] MEDS: ASPIRIN 81 MG CHEWABLE TABLETS PO SCH (15:38)
[2018-09-27] MEDS ORDERED: INSULIN (NOVOLOG) ASPART 100 UNITS/ML 10ML VIAL SQ ONE (17:45)
[2018-09-27] MEDS: ATORVASTATIN CA 40 MG TABLET (FP) PO SCH (22:10)
[2018-09-28] MEDS: methylPREDNISolone NA SUCC 40 MG/1 ML VIAL IVPUSH SCH ×3 (02:24→22:51)
[2018-09-28] MEDS: INSULIN SLIDING SCALE (NOVOLOG) 1 VIAL SQ SCH ×5 (06:17→23:15)
[2018-09-28] MEDS: INSULIN (LEVEMIR) 100 UNITS/ML UNITS SQ SCH ×2 (06:17→22:51)
[2018-09-28] MEDS: LEVOTHYROXINE NA 50 MCG TABLET (FP) PO SCH (06:17)
[2018-09-28] MEDS: ALBUTEROL SO4 2.5/IPRATROPIUM 0.5 INH SOL 3 ML VIAL.NEB. NEB SCH ×4 (07:20→19:57)
[2018-09-28 07:43] LABS: BASO % 0.1 % (0-2.0); EOS % 0.1 % (0-4.5); HEMATOCRIT 37.2 % (32.4-45.2); HEMOGLOBIN 12.6 GM/dL (10.7-15.3); LYMPH % 6.1 % (8-40); MCH 32.3 pg (25.7-33.7); MCHC 33.9 g/dl (32.0-36.0); MEAN CELL VOLUME 95.2 fl (80-96); MONO % 2.6 % (3.8-10.2); NEUT % 91.1 % (42.8-82.8); PLATELET COUNT 232 K/MM3 (134-434); RBC 3.91 M/mm3 (3.60-5.2); RDW 12.9 % (11.6-15.6)
[2018-09-28 08:03] LABS: ALBUMIN 3.4 g/dl (3.4-5.0); BILIRUBIN,TOTAL 0.4 mg/dL (0.2-1); CALCIUM 9.6 mg/dL (8.5-10.1); CREATININE 0.9 mg/dL (0.55-1.3); POTASSIUM 4.9 mmol/L (3.5-5.1); TOT PROT 7.1 g/dl (6.4-8.2)
--- NOTE | 2018-09-28 08:50 | PN ---
Progress Note, Physician History of Present Illness: PULMONARY ALERT,FEELING BETTER ON NASAL CANNULA,-RESP DISTRESS - Current Medication List Current Medications: Active Medications Acetaminophen (Tylenol -) 650 mg PO Q6H PRN PRN Reason: PAIN LEVEL 1-5 Albuterol/Ipratropium (Duoneb -) 1 amp NEB RQID [facility] Last Admin: 09/28/18 07:20 Dose: 1 amp Aspirin (Asa -) 81 mg PO DAILY [facility] Last Admin: 09/27/18 15:38 Dose: 81 mg Atorvastatin Calcium (Lipitor -) 40 mg PO HS [facility] Last Admin: 09/27/18 22:10 Dose: 40 mg Heparin Sodium (Porcine) (Heparin -) 5,000 unit SQ BID [facility] Last Admin: 09/27/18 22:10 Dose: 5,000 unit Azithromycin (Zithromax 500mg Ivpb (Pre-Docked)) 500 mg in 250 mls @ 250 mls/ hr IVPB DAILY [facility] Last Admin: 09/27/18 10:45 Dose: 250 mls/hr Ceftriaxone Sodium 1 gm/ (Dextrose) 50 mls @ 100 mls/hr IVPB DAILY [facility]; Protocol Last Admin: 09/27/18 10:45 Dose: 100 mls/hr Insulin Aspart (Novolog Vial Sliding Scale -) 1 vial SQ ACHS [facility]; Protocol Last Admin: 09/28/18 06:17 Dose: 8 units Insulin Detemir (Levemir Vial) 30 units SQ AM [facility] Last Admin: 09/28/18 06:17 Dose: 30 units Levothyroxine Sodium (Synthroid -) 50 mcg PO DAILY@0700 [facility] Last Admin: 09/28/18 06:17 Dose: 50 mcg Methylprednisolone Sodium Succinate (Solu-Medrol -) 40 mg IVPUSH Q8H-IV [facility] Last Admin: 09/28/18 02:24 Dose: 40 mg - Objective Vital Signs: Vital Signs Temperature 97.9 F 09/28/18 06:00 Pulse Rate 83 09/28/18 06:00 Respiratory Rate 20 09/28/18 06:00 Blood Pressure 125/56 L 09/28/18 06:00 O2 Sat by Pulse Oximetry (%) 98 09/28/18 03:57 Constitutional: Yes: Well Nourished, Calm Eyes: Yes: WNL HENT: Yes: WNL Neck: Yes: WNL Cardiovascular: Yes: Regular Rate and Rhythm, S1, S2 Respiratory: Yes: Wheezes (FEW WHEEZES) Gastrointestinal: Yes: Normal Bowel Sounds, Soft Extremities: Yes: WNL Edema: No Labs: CBC, BMP 09/28/18 06:10 09/28/18 06:10 INR, PTT INR 0.97 (0.83-1.09) 09/26/18 06:03 Laboratory Tests 09/27/18 12:28 ABG pH 7.35 ABG pCO2 at Pt Temp 44.9 ABG pO2 at Pt Temp 89.4 ABG HCO3 24.2 ABG O2 Sat (Measured) 96.9 Assessment/Plan Assessment/Plan Acute Hypercapneic Respiratory Failure improved Pneumonia Acute COPD Exacerbation improving Lactic Acidosis improved r/o CHF HTN DM Hypothyroidism + Troponin - antibiotics - inhaled bronchodilators - medrol taper - O2 to keep SpO2 >90% - BiPAP as needed to assist in work of breathing - monitor urine output, creatinine - monitor CXR - outpt PFTs - DVT prophylaxis - trend troponin DR GREEN
[2018-09-28] MEDS ORDERED: methylPREDNISolone NA SUCC 40 MG/1 ML VIAL IVPUSH SCH ×2 (09:00)
[2018-09-28] MEDS: ASPIRIN 81 MG CHEWABLE TABLETS PO SCH (11:00)
[2018-09-28] MEDS: HEPARIN NA (PORCINE) 5,000 UNITS/ML 1ML VIAL SQ SCH ×2 (11:00→22:44)
[2018-09-28] MEDS: CEFTRIAXONE 1 GM in DEXTROSE 5%-WATER - 50 ML IVPB SCH (11:00)
[2018-09-28] MEDS: AZITHROMYCIN IVPB 500 MG/250 ML BAG IVPB SCH (11:00)
--- NOTE | 2018-09-28 11:11 | PN ---
Progress Note, Physician Chief Complaint: AWAKE ALERT SOB ON 02 EVENTS AND NOTES REVIEWED - Current Medication List Current Medications: Active Medications Acetaminophen (Tylenol -) 650 mg PO Q6H PRN PRN Reason: PAIN LEVEL 1-5 Albuterol/Ipratropium (Duoneb -) 1 amp NEB RQID [facility] Last Admin: 09/28/18 07:20 Dose: 1 amp Aspirin (Asa -) 81 mg PO DAILY [facility] Last Admin: 09/27/18 15:38 Dose: 81 mg Atorvastatin Calcium (Lipitor -) 40 mg PO HS [facility] Last Admin: 09/27/18 22:10 Dose: 40 mg Heparin Sodium (Porcine) (Heparin -) 5,000 unit SQ BID [facility] Last Admin: 09/27/18 22:10 Dose: 5,000 unit Azithromycin (Zithromax 500mg Ivpb (Pre-Docked)) 500 mg in 250 mls @ 250 mls/ hr IVPB DAILY [facility] Last Admin: 09/27/18 10:45 Dose: 250 mls/hr Ceftriaxone Sodium 1 gm/ (Dextrose) 50 mls @ 100 mls/hr IVPB DAILY [facility]; Protocol Last Admin: 09/27/18 10:45 Dose: 100 mls/hr Insulin Aspart (Novolog Vial Sliding Scale -) 1 vial SQ ACHS [facility]; Protocol Last Admin: 09/28/18 06:17 Dose: 8 units Insulin Detemir (Levemir Vial) 30 units SQ AM [facility] Last Admin: 09/28/18 06:17 Dose: 30 units Levothyroxine Sodium (Synthroid -) 50 mcg PO DAILY@0700 [facility] Last Admin: 09/28/18 06:17 Dose: 50 mcg Methylprednisolone Sodium Succinate (Solu-Medrol -) 40 mg IVPUSH BID [facility] - Objective Vital Signs: Vital Signs Temperature 97.9 F 09/28/18 06:00 Pulse Rate 83 09/28/18 06:00 Respiratory Rate 20 09/28/18 06:00 Blood Pressure 125/56 L 09/28/18 06:00 O2 Sat by Pulse Oximetry (%) 98 09/28/18 03:57 Constitutional: Yes: Mild Distress Eyes: Yes: WNL HENT: Yes: WNL Neck: Yes: WNL Cardiovascular: Yes: Regular Rate and Rhythm Respiratory: Yes: Cough, Diminished, On Nasal O2 Gastrointestinal: Yes: Abdomen, Obese Genitourinary: Yes: Incontinence Musculoskeletal: Yes: Muscle Weakness Peripheral Pulses WNL: Yes Integumentary: Yes: WNL Wound/Incision: Yes: Clean/Dry Neurological: Yes: WNL ...Motor Strength: WNL Psychiatric: Yes: WNL Labs: CBC, BMP 09/28/18 06:10 09/28/18 06:10 INR, PTT INR 0.97 (0.83-1.09) 09/26/18 06:03 Problem List - Problems (1) Diabetes Code(s): E11.9 - TYPE 2 DIABETES MELLITUS WITHOUT COMPLICATIONS Qualifiers: Diabetes mellitus type: type 2 (2) Elevated troponin Code(s): R74.8 - ABNORMAL LEVELS OF OTHER SERUM ENZYMES (3) Hypothyroid Code(s): E03.9 - HYPOTHYROIDISM, UNSPECIFIED (4) Lactic acidosis Code(s): E87.2 - ACIDOSIS (5) Leg edema Code(s): R60.0 - LOCALIZED EDEMA (6) Leukocytosis Code(s): D72.829 - ELEVATED WHITE BLOOD CELL COUNT, UNSPECIFIED (7) Pneumonia Code(s): J18.9 - PNEUMONIA, UNSPECIFIED ORGANISM (8) Pulmonary edema Code(s): J81.1 - CHRONIC PULMONARY EDEMA (9) Respiratory acidosis Code(s): E87.2 - ACIDOSIS (10) Urinary tract infection Code(s): N39.0 - URINARY TRACT INFECTION, SITE NOT SPECIFIED Assessment/Plan IB ABX AND RESP SUPPORT ON NEBS PULM AND ID F/U APPREICATED DVT PROPHYLAXIS OOB TO CHAIR
--- NOTE | 2018-09-28 11:45 | PN ---
Progress Note, Physician Chief Complaint: Redness of breath History of Present Illness: 78yo female with h/o HTN, DM, hypothyroidism, CAD s/p remote PCI (last stress test [address] Vito blanca), CHF who presents with sudden onset of shortness of breath overnight while she was sitting. No chest pain or palpitations. No significant cough or wheezing. She has been experiencing subjective fevers and chills, was being treated with antibiotics for UTI. She is a remote smoker, quit 17 years ago. Denies history of asthma or COPD. Does not use any inhalers at home. Reports chronic leg swelling L>R but currently improved over her baseline. Echo 09/27/18 ef 50-55, mild apical aw akinesis yuliet increasing but no chest pain. - Current Medication List Current Medications: Active Medications Acetaminophen (Tylenol -) 650 mg PO Q6H PRN PRN Reason: PAIN LEVEL 1-5 Albuterol/Ipratropium (Duoneb -) 1 amp NEB RQID [facility] Last Admin: 09/28/18 11:32 Dose: 1 amp Aspirin (Asa -) 81 mg PO DAILY [facility] Last Admin: 09/27/18 15:38 Dose: 81 mg Atorvastatin Calcium (Lipitor -) 40 mg PO HS [facility] Last Admin: 09/27/18 22:10 Dose: 40 mg Heparin Sodium (Porcine) (Heparin -) 5,000 unit SQ BID [facility] Last Admin: 09/27/18 22:10 Dose: 5,000 unit Azithromycin (Zithromax 500mg Ivpb (Pre-Docked)) 500 mg in 250 mls @ 250 mls/ hr IVPB DAILY [facility] Last Admin: 09/27/18 10:45 Dose: 250 mls/hr Ceftriaxone Sodium 1 gm/ (Dextrose) 50 mls @ 100 mls/hr IVPB DAILY [facility]; Protocol Last Admin: 09/27/18 10:45 Dose: 100 mls/hr Insulin Aspart (Novolog Vial Sliding Scale -) 1 vial SQ ACHS [facility]; Protocol Last Admin: 09/28/18 06:17 Dose: 8 units Insulin Detemir (Levemir Vial) 30 units SQ AM [facility] Last Admin: 09/28/18 06:17 Dose: 30 units Levothyroxine Sodium (Synthroid -) 50 mcg PO DAILY@0700 [facility] Last Admin: 09/28/18 06:17 Dose: 50 mcg Methylprednisolone Sodium Succinate (Solu-Medrol -) 40 mg IVPUSH BID [facility] - Objective Vital Signs: Vital Signs Temperature 97.9 F 09/28/18 06:00 Pulse Rate 83 09/28/18 06:00 Respiratory Rate 20 09/28/18 06:00 Blood Pressure 125/56 L 09/28/18 06:00 O2 Sat by Pulse Oximetry (%) 98 09/28/18 03:57 Constitutional: Yes: Mild Distress, Obese Eyes: Yes: WNL, Conjunctiva Clear, EOM Intact HENT: Yes: WNL, Atraumatic, Normocephalic Neck: Yes: WNL, Supple, Trachea Midline Cardiovascular: Yes: WNL, Regular Rate and Rhythm Respiratory: Yes: Accessory Muscle Use, On Venti-Mask Gastrointestinal: Yes: WNL, Normal Bowel Sounds, Soft ...Rectal Exam: Yes: Deferred Genitourinary: Yes: WNL Musculoskeletal: Yes: WNL Extremities: Yes: WNL Edema: LLE: Trace, RLE: Trace Peripheral Pulses: Left Radial: 1+, Right Radial: 1+, Left Doralis Pedis: 1+, Right Dorsalis Pedis: 1+, Left Femoral: 1+, Right Femoral: 1+ Integumentary: Yes: WNL Neurological: Yes: WNL, Alert, Oriented ...Motor Strength: WNL Labs: CBC, BMP 09/28/18 06:10 09/28/18 06:10 INR, PTT INR 0.97 (0.83-1.09) 09/26/18 06:03 Assessment/Plan 78yo female with h/o HTN, DM, hypothyroidism, CAD s/p remote PCI (last stress test [address] Vito Carl normal), CHF who presents with sudden onset of shortness of breath overnight while she was sitting. No chest pain or palpitations. No significant cough or wheezing. She has been experiencing subjective fevers and chills, was being treated with antibiotics for UTI. She is a remote smoker, quit 17 years ago. Denies history of asthma or COPD. Does not use any inhalers at home. Reports chronic leg swelling L>R but currently improved over her baseline. Echo 09/27/18 ef 50-55, mild apical aw akinesis yuliet increasing but no chest pain. The patient has mild pulmonary congestion. Would start Lasix 40 mg by mouth once daily. Continue the other medications as currently. Cardiac stable. There is no need for further cardiac workup at this point. Please do not hesitate to call us PRN.
[2018-09-28] MEDS ORDERED: INSULIN (NOVOLOG) ASPART 100 UNITS/ML 10ML VIAL ONE (12:26)
[2018-09-28] MEDS ORDERED: cefTRIAXone SODIUM 1 GM VIAL ONE (12:27)
[2018-09-28] MEDS ORDERED: DEXTROSE 5%-WATER - 50 ML IVPB ONE (12:27)
[2018-09-28 12:36] LABS: ANISOCYTOSIS 0; MACROCYTOSIS 1+; PLATELET ESTIMATE NORMAL
--- NOTE | 2018-09-28 18:18 | CONSULT ---
"Consult Consult Specialty:: endocrine Referred by:: riya weinstein md Reason for Consultation:: diabetes mellitus - History of Present Illness Chief Complaint: cough and difficulty breathing History of Present Illness: 78yo female pmh |DM2, HTN, hypothyroidism, CAD, CHF who presents with sudden onset of shortness of breath overnight while she was sitting. No chest pain or palpitations. She had recent uti,treated with macrobid for 4 days and then switched to cipro which patient did not refill since had recent episode of dyspnea and cough which prompted her admission.she denies nausea and vomiting - Past Medical History Cardio/Vascular: Yes: CHF Pulmonary: Yes: COPD ...: No - Alcohol/Substance Use Hx Alcohol Use: No - Smoking History Smoking history: Never smoked Have you smoked in the past 12 months: No Home Medications - Allergies Allergies/Adverse Reactions: Allergies Allergy/AdvReac Type Severity Reaction Status Date / Time Sulfa (Sulfonamide Allergy Verified 09/26/18 06:16 Antibiotics) - Home Medications Home Medications: Ambulatory Orders Aspirin [ASA -] 81 mg PO DAILY 09/26/18 Furosemide [Lasix -] 40 mg PO DAILY 09/26/18 Gabapentin [Neurontin -] 100 mg PO Q8H 09/26/18 Insulin Glargine,Hum.rec.anlog [Basaglar Kwikpen U-100] 50 unit SQ DAILY Insulin Lispro [Humalog] See Protocol SQ AC PRN 09/26/18 Levothyroxine [Synthroid -] 75 mcg PO DAILY 09/26/18 Lisinopril [Prinivil -] 40 mg PO DAILY 09/26/18 Metformin HCl [Glucophage] 1,000 mg PO DAILY 09/26/18 Metoprolol Succinate [Toprol Xl -] 25 mg PO BID 09/26/18 Oxybutynin Chloride 5 mg PO DAILY 09/26/18 Potassium Chloride 10 meq PO DAILY 09/26/18 Review of Systems - Review of Systems Constitutional: reports: Lethargy, Weakness Eyes: reports: No Symptoms HENT: reports: No Symptoms Neck: reports: No Symptoms Cardiovascular: reports: Shortness of Breath Respiratory: reports: Exercise Intolerance, SOB on Exertion Gastrointestinal: reports: Constipation Genitourinary: reports: Frequency Breasts: reports: No Symptoms Reported Musculoskeletal: reports: Muscle Weakness Neurological: reports: Weakness Endocrine: reports: Unexplained Weight Gain Physical Exam Vital Signs: Vital Signs Temperature 98 F 09/28/18 14:00 Pulse Rate 94 H 09/28/18 14:00 Respiratory Rate 20 09/28/18 14:00 Blood Pressure 117/72 09/28/18 14:00 O2 Sat by Pulse Oximetry (%) 98 09/28/18 09:00 Constitutional: Yes: Calm Eyes: Yes: EOM Intact HENT: Yes: Normocephalic Neck: Yes: Trachea Midline Cardiovascular: Yes: Tachycardia Respiratory: Yes: On Nasal O2, SOB, Tachypnea Gastrointestinal: Yes: Abdomen, Obese ...Rectal Exam: Yes: Deferred Renal/: Yes: WNL Musculoskeletal: Yes: Back Pain, Muscle Weakness Edema: LLE: 1+, RLE: 1+ Neurological: Yes: Alert, Oriented Labs: CBC, BMP 09/28/18 06:10 09/28/18 13:05 Assessment/Plan Current Active Problems Diabetes (Acute) Elevated troponin (Acute) Hypothyroid (Acute) Lactic acidosis (Acute) Leg edema (Acute) Leukocytosis (Acute) Pneumonia (Acute) Pulmonary edema (Acute) Respiratory acidosis (Acute) Abnormal Lab Results 09/27/18 09/28/18 09/28/18 19:15 06:10 06:10 WBC 14.0 H Absolute Neuts (auto) 12.7 H Neutrophils % 91.1 H Neutrophils % (Manual) 90.9 H Lymphocytes % 6.1 L Lymphocytes % (Manual) 3.0 L Monocytes % 2.6 L Sodium 130 L Chloride 94 L BUN 45 H Random Glucose 496 H* 394 H* Creatine Kinase 243 H CK-MB (CK-2) 10.0 H Troponin I 1.19 H* 09/28/18 13:05 WBC Absolute Neuts (auto) Neutrophils % Neutrophils % (Manual) Lymphocytes % Lymphocytes % (Manual) Monocytes % Sodium Chloride BUN Random Glucose 466 H* Creatine Kinase CK-MB (CK-2) Troponin I Laboratory Results - last 24 hr 09/27/18 09/27/18 09/28/18 19:15 22:02 06:10 WBC 14.0 H RBC 3.91 Hgb 12.6 Hct 37.2 MCV 95.2 MCH 32.3 MCHC 33.9 RDW 12.9 Plt Count 232 MPV 10.0 Absolute Neuts (auto) 12.7 H Neutrophils % 91.1 H Neutrophils % (Manual) 90.9 H Band Neutrophils % 0.0 Lymphocytes % 6.1 L Lymphocytes % (Manual) 3.0 L Monocytes % 2.6 L Monocytes % (Manual) 5 Eosinophils % 0.1 Eosinophils % (Manual) 0.0 Basophils % 0.1 Basophils % (Manual) 1.0 Myelocytes % (Man) 0 Promyelocytes % (Man) 0 Blast Cells % (Manual) 0 Nucleated RBC % 0 Metamyelocytes 0 Hypochromia 0 Platelet Estimate Normal Polychromasia 0 Poikilocytosis 0 Anisocytosis 0 Microcytosis 0 Macrocytosis 1+ Sodium Potassium Chloride Carbon Dioxide Anion Gap BUN Creatinine Est GFR (CKD-EPI)AfAm Est GFR (CKD-EPI)NonAf POC Glucometer 437 Random Glucose 496 H* Calcium Total Bilirubin AST ALT Alkaline Phosphatase Creatine Kinase Creatine Kinase Index CK-MB (CK-2) Troponin I Total Protein Albumin 09/28/18 09/28/18 09/28/18 06:10 06:12 12:20 WBC RBC Hgb Hct MCV MCH MCHC RDW Plt Count MPV Absolute Neuts (auto) Neutrophils % Neutrophils % (Manual) Band Neutrophils % Lymphocytes % Lymphocytes % (Manual) Monocytes % Monocytes % (Manual) Eosinophils % Eosinophils % (Manual) Basophils % Basophils % (Manual) Myelocytes % (Man) Promyelocytes % (Man) Blast Cells % (Manual) Nucleated RBC % Metamyelocytes Hypochromia Platelet Estimate Polychromasia Poikilocytosis Anisocytosis Microcytosis Macrocytosis Sodium 130 L Potassium 4.9 Chloride 94 L Carbon Dioxide 28 Anion Gap 8 BUN 45 H Creatinine 0.9 Est GFR (CKD-EPI)AfAm 71.98 Est GFR (CKD-EPI)NonAf 62.11 POC Glucometer 387 469 Random Glucose 394 H* Calcium 9.6 Total Bilirubin 0.4 AST 20 ALT 21 Alkaline Phosphatase 105 Creatine Kinase 243 H Creatine Kinase Index 4.1 CK-MB (CK-2) 10.0 H Troponin I 1.19 H* Total Protein 7.1 Albumin 3.4 09/28/18 09/28/18 13:05 17:12 WBC RBC Hgb Hct MCV MCH MCHC RDW Plt Count MPV Absolute Neuts (auto) Neutrophils % Neutrophils % (Manual) Band Neutrophils % Lymphocytes % Lymphocytes % (Manual) Monocytes % Monocytes % (Manual) Eosinophils % Eosinophils % (Manual) Basophils % Basophils % (Manual) Myelocytes % (Man) Promyelocytes % (Man) Blast Cells % (Manual) Nucleated RBC % Metamyelocytes Hypochromia Platelet Estimate Polychromasia Poikilocytosis Anisocytosis Microcytosis Macrocytosis Sodium Potassium Chloride Carbon Dioxide Anion Gap BUN Creatinine Est GFR (CKD-EPI)AfAm Est GFR (CKD-EPI)NonAf POC Glucometer 461 Random Glucose 466 H* Calcium Total Bilirubin AST ALT Alkaline Phosphatase Creatine Kinase Creatine Kinase Index CK-MB (CK-2) Troponin I Total Protein Albumin plan: bgm qid achs novolog scale for steroid resistance levemir bid doses titrate as needed synthroid 50mcg daily chk tsh free t4"
[2018-09-28] MEDS: ACETAMINOPHEN 325 MG TABLET (FP) PO PRN (22:43)
[2018-09-28] MEDS: ATORVASTATIN CA 40 MG TABLET (FP) PO SCH (22:43)
[2018-09-28] MEDS ORDERED: INSULIN (NOVOLOG) ASPART 100 UNITS/ML 10ML VIAL SQ ONE (23:15)
[2018-09-28] MEDS: SODIUM CHLORIDE 1,000 ML IV SCH (23:15)
[2018-09-29] MEDS ORDERED: IBUPROFEN 600 MG TABLET (FP) PO PRN (02:41)
[2018-09-29 06:15] LABS: HEMATOCRIT 38.3 % (32.4-45.2); HEMOGLOBIN 13.1 GM/dL (10.7-15.3); MCH 32.2 pg (25.7-33.7); MCHC 34.1 g/dl (32.0-36.0); MEAN CELL VOLUME 94.4 fl (80-96); MEAN PLT VOLUME 9.5 fl (7.5-11.1); PLATELET COUNT 270 K/MM3 (134-434); RBC 4.06 M/mm3 (3.60-5.2); WHITE BLOOD COUNT 14.3 K/mm3 (4.0-10.0)
[2018-09-29] MEDS: LEVOTHYROXINE NA 50 MCG TABLET (FP) PO SCH (06:43)
[2018-09-29] MEDS: INSULIN SLIDING SCALE (NOVOLOG) 1 VIAL SQ SCH ×4 (06:43→21:38)
[2018-09-29] MEDS: INSULIN (LEVEMIR) 100 UNITS/ML UNITS SQ SCH ×2 (06:44→21:36)
[2018-09-29 07:15] LABS: CREATININE 0.9 mg/dL (0.55-1.3); POTASSIUM 4.9 mmol/L (3.5-5.1)
[2018-09-29] MEDS: ALBUTEROL SO4 2.5/IPRATROPIUM 0.5 INH SOL 3 ML VIAL.NEB. NEB SCH ×4 (08:55→20:40)
[2018-09-29] MEDS ORDERED: cefTRIAXone SODIUM 1 GM VIAL ONE (09:10)
[2018-09-29] MEDS ORDERED: DEXTROSE 5%-WATER - 50 ML IVPB ONE (09:10)
[2018-09-29] MEDS: CEFTRIAXONE 1 GM in DEXTROSE 5%-WATER - 50 ML IVPB SCH (09:33)
[2018-09-29] MEDS: ASPIRIN 81 MG CHEWABLE TABLETS PO SCH (09:33)
[2018-09-29] MEDS: AZITHROMYCIN IVPB 500 MG/250 ML BAG IVPB SCH (09:33)
[2018-09-29] MEDS: HEPARIN NA (PORCINE) 5,000 UNITS/ML 1ML VIAL SQ SCH ×2 (09:34→21:36)
[2018-09-29] MEDS: methylPREDNISolone NA SUCC 40 MG/1 ML VIAL IVPUSH SCH (09:34)
--- NOTE | 2018-09-29 10:42 | PN ---
Progress Note, Physician History of Present Illness: PULMONARY ALERT,FEELING BETTER ,-SOB,ON NASAL CANNULA SATURATING WELL - Current Medication List Current Medications: Active Medications Acetaminophen (Tylenol -) 650 mg PO Q6H PRN PRN Reason: PAIN LEVEL 1-5 Last Admin: 09/28/18 22:43 Dose: 650 mg Albuterol/Ipratropium (Duoneb -) 1 amp NEB RQID [facility] Last Admin: 09/29/18 08:55 Dose: 1 amp Aspirin (Asa -) 81 mg PO DAILY [facility] Last Admin: 09/29/18 09:33 Dose: 81 mg Atorvastatin Calcium (Lipitor -) 40 mg PO HS [facility] Last Admin: 09/28/18 22:43 Dose: 40 mg Heparin Sodium (Porcine) (Heparin -) 5,000 unit SQ BID [facility] Last Admin: 09/29/18 09:34 Dose: 5,000 unit Azithromycin (Zithromax 500mg Ivpb (Pre-Docked)) 500 mg in 250 mls @ 250 mls/ hr IVPB DAILY [facility] Last Admin: 09/29/18 09:33 Dose: 250 mls/hr Ceftriaxone Sodium 1 gm/ (Dextrose) 50 mls @ 100 mls/hr IVPB DAILY [facility]; Protocol Last Admin: 09/29/18 09:33 Dose: 100 mls/hr Sodium Chloride (Normal Saline -) 1,000 mls @ 42 mls/hr IV ASDIR [facility] Last Admin: 09/28/18 23:15 Dose: 42 mls/hr Ibuprofen (Motrin -) 600 mg PO Q6H PRN PRN Reason: PAIN LEVEL 1-5 Insulin Aspart (Novolog Vial Sliding Scale -) 1 vial SQ ACHS [facility]; Protocol Last Admin: 09/29/18 06:43 Dose: 9 units Insulin Detemir (Levemir Vial) 40 units SQ AM [facility] Last Admin: 09/29/18 06:44 Dose: 40 units Insulin Detemir (Levemir Vial) 30 units SQ HS [facility] Last Admin: 09/28/18 22:51 Dose: 30 units Levothyroxine Sodium (Synthroid -) 50 mcg PO DAILY@0700 [facility] Last Admin: 09/29/18 06:43 Dose: 50 mcg Methylprednisolone Sodium Succinate (Solu-Medrol -) 40 mg IVPUSH BID [facility] Last Admin: 09/29/18 09:34 Dose: 40 mg - Objective Vital Signs: Vital Signs Temperature 97.8 F 09/29/18 06:48 Pulse Rate 72 09/29/18 09:32 Respiratory Rate 18 09/29/18 09:32 Blood Pressure 114/70 09/29/18 09:32 O2 Sat by Pulse Oximetry (%) 96 09/29/18 07:57 Constitutional: Yes: Well Nourished, Calm Eyes: Yes: WNL HENT: Yes: WNL Neck: Yes: WNL Cardiovascular: Yes: Regular Rate and Rhythm, S1, S2 Gastrointestinal: Yes: Normal Bowel Sounds, Soft Extremities: Yes: WNL Edema: Yes Labs: CBC, BMP 09/29/18 05:30 09/29/18 05:30 INR, PTT INR 0.97 (0.83-1.09) 09/26/18 06:03 Assessment/Plan Assessment/Plan Acute Hypercapneic Respiratory Failure improved Pneumonia Acute COPD Exacerbation improving Lactic Acidosis improved r/o CHF HTN DM Hypothyroidism + Troponin - antibiotics - inhaled bronchodilators - continue medrol taper - O2 to keep SpO2 >90% - BiPAP as needed to assist in work of breathing - monitor urine output, creatinine - CXR AM - outpt PFTs - DVT prophylaxis - trend troponin DR GREEN
[2018-09-29] MEDS ORDERED: methylPREDNISolone NA SUCC 40 MG/1 ML VIAL IVPUSH SCH (10:44)
--- NOTE | 2018-09-29 12:21 | CON.NEP ---
Consult Consult Specialty:: nephrology Reason for Consultation:: abnormal renal numbers - History of Present Illness Chief Complaint: dyspnea History of Present Illness: This is a 78 year old woman with history of diabetes, dilated cardiomyopathy, htn, obesity, previous nephrolithiasis and hepatomegaly who presents with increasing dyspnea to the point that she felt like she could not breathe at all. She was very scared coming to the ED in the ambulance yesterday. Had no chest pain. Has felt better with diuretics but was also given steroids and her glucose is now out of control - History Source History Provided By: Patient, Medical Record - Past Medical History Cardio/Vascular: Yes: CHF Pulmonary: Yes: COPD Renal/: Yes: Renal Calculi ...: No Endocrine: Yes: Diabetes Mellitus - Alcohol/Substance Use Hx Alcohol Use: No - Smoking History Smoking history: Never smoked Have you smoked in the past 12 months: No Home Medications - Allergies Allergies/Adverse Reactions: Allergies Allergy/AdvReac Type Severity Reaction Status Date / Time Sulfa (Sulfonamide Allergy Verified 09/26/18 06:16 Antibiotics) - Home Medications Home Medications: Ambulatory Orders Aspirin [ASA -] 81 mg PO DAILY 09/26/18 Furosemide [Lasix -] 40 mg PO DAILY 09/26/18 Gabapentin [Neurontin -] 100 mg PO Q8H 09/26/18 Insulin Glargine,Hum.rec.anlog [Basaglar Kwikpen U-100] 50 unit SQ DAILY Insulin Lispro [Humalog] See Protocol SQ AC PRN 09/26/18 Levothyroxine [Synthroid -] 75 mcg PO DAILY 09/26/18 Lisinopril [Prinivil -] 40 mg PO DAILY 09/26/18 Metformin HCl [Glucophage] 1,000 mg PO DAILY 09/26/18 Metoprolol Succinate [Toprol Xl -] 25 mg PO BID 09/26/18 Oxybutynin Chloride 5 mg PO DAILY 09/26/18 Potassium Chloride 10 meq PO DAILY 09/26/18 Review of Systems - Review of Systems Constitutional: reports: No Symptoms Eyes: reports: No Symptoms HENT: reports: No Symptoms Neck: reports: No Symptoms Cardiovascular: reports: Edema, Shortness of Breath Respiratory: reports: SOB Gastrointestinal: reports: No Symptoms Genitourinary: reports: No Symptoms Breasts: reports: No Symptoms Reported Musculoskeletal: reports: No Symptoms Integumentary: reports: No Symptoms Neurological: reports: No Symptoms Endocrine: reports: No Symptoms Hematology/Lymphatic: reports: No Symptoms Psychiatric: reports: No Symptoms Nephrology Consult - Height Height: 4 ft 11 in - Weight Weight: 222 lb 9.6 oz - BMI Body Mass Index (BMI): 44.9 - Lab Results CBC,BMP: CBC, BMP 09/29/18 05:30 09/29/18 05:30 Anion Gap: Anion Gap Anion Gap 9 MMOL/L (8-16) 09/29/18 05:30 - Imaging Cat Scan: Report Reviewed (chronic lung disease and probably mild lung congestion) - Physical Examination Vital Signs: Vital Signs Temperature 97.8 F 09/29/18 06:48 Pulse Rate 72 09/29/18 09:32 Respiratory Rate 18 09/29/18 09:32 Blood Pressure 114/70 09/29/18 09:32 O2 Sat by Pulse Oximetry (%) 96 09/29/18 07:57 Constitutional: Yes: Mild Distress, Obese Eyes: Yes: Conjunctiva Clear HENT: Yes: Atraumatic, Normocephalic Neck: Yes: Supple, Trachea Midline Cardiovascular: Yes: Regular Rate and Rhythm Respiratory: Yes: Diminished, Rales Gastrointestinal: Yes: Normal Bowel Sounds Renal/: Yes: WNL Musculoskeletal: Yes: WNL Extremities: Yes: WNL Edema: Yes Edema: LLE: 1+, RLE: 1+ Neurological: Yes: Alert, Oriented Psychiatric: Yes: Alert, Oriented Assessment/Plan This is an obese lady with dyspnea and dilated cardiomyopathy and history of nephrolithiaisis. She has proteinuria and an elevated bun which is rising presumably from steroids. She does haveincreased intestitial markings on CT scan. IMPRESSION proteinuria high bun normal creat from steroids and diuretics dialated cardiomyopathy fluid overload? hyperglycemia copd exacerbation PLAN gentle hydration given hyperglycemia continue steroids though taper monitor electrolytes proteinuria work up antibiotics adjust insulin per glucose level MV
--- NOTE | 2018-09-29 12:57 | PN ---
Progress Note, Physician Chief Complaint: AWAKE ALERT FAMILY BEDSIDE FEELING BETTER - Current Medication List Current Medications: Active Medications Acetaminophen (Tylenol -) 650 mg PO Q6H PRN PRN Reason: PAIN LEVEL 1-5 Last Admin: 09/28/18 22:43 Dose: 650 mg Albuterol/Ipratropium (Duoneb -) 1 amp NEB RQID [facility] Last Admin: 09/29/18 11:28 Dose: 1 amp Aspirin (Asa -) 81 mg PO DAILY [facility] Last Admin: 09/29/18 09:33 Dose: 81 mg Atorvastatin Calcium (Lipitor -) 40 mg PO HS [facility] Last Admin: 09/28/18 22:43 Dose: 40 mg Heparin Sodium (Porcine) (Heparin -) 5,000 unit SQ BID [facility] Last Admin: 09/29/18 09:34 Dose: 5,000 unit Azithromycin (Zithromax 500mg Ivpb (Pre-Docked)) 500 mg in 250 mls @ 250 mls/ hr IVPB DAILY [facility] Last Admin: 09/29/18 09:33 Dose: 250 mls/hr Ceftriaxone Sodium 1 gm/ (Dextrose) 50 mls @ 100 mls/hr IVPB DAILY [facility]; Protocol Last Admin: 09/29/18 09:33 Dose: 100 mls/hr Sodium Chloride (Normal Saline -) 1,000 mls @ 42 mls/hr IV ASDIR [facility] Last Admin: 09/28/18 23:15 Dose: 42 mls/hr Insulin Aspart (Novolog Vial Sliding Scale -) 1 vial SQ ACHS [facility]; Protocol Last Admin: 09/29/18 12:27 Dose: 10 units Insulin Detemir (Levemir Vial) 40 units SQ AM [facility] Last Admin: 09/29/18 06:44 Dose: 40 units Insulin Detemir (Levemir Vial) 30 units SQ HS [facility] Last Admin: 09/28/18 22:51 Dose: 30 units Levothyroxine Sodium (Synthroid -) 50 mcg PO DAILY@0700 [facility] Last Admin: 09/29/18 06:43 Dose: 50 mcg Methylprednisolone Sodium Succinate (Solu-Medrol -) 30 mg IVPUSH BID [facility] - Objective Vital Signs: Vital Signs Temperature 97.8 F 09/29/18 06:48 Pulse Rate 72 09/29/18 09:32 Respiratory Rate 18 09/29/18 09:32 Blood Pressure 114/70 09/29/18 09:32 O2 Sat by Pulse Oximetry (%) 96 09/29/18 07:57 Constitutional: Yes: Mild Distress Eyes: Yes: WNL HENT: Yes: WNL Neck: Yes: WNL Cardiovascular: Yes: WNL Respiratory: Yes: CTA Bilaterally Gastrointestinal: Yes: WNL Genitourinary: Yes: WNL Musculoskeletal: Yes: WNL Edema: Yes Edema: LLE: 1+, RLE: 1+ Peripheral Pulses WNL: Yes Wound/Incision: Yes: Clean/Dry Neurological: Yes: WNL ...Motor Strength: WNL Psychiatric: Yes: WNL Labs: CBC, BMP 09/29/18 05:30 09/29/18 05:30 INR, PTT INR 0.97 (0.83-1.09) 09/26/18 06:03 Problem List - Problems (1) Diabetes Code(s): E11.9 - TYPE 2 DIABETES MELLITUS WITHOUT COMPLICATIONS Qualifiers: Diabetes mellitus type: type 2 (2) Elevated troponin Code(s): R74.8 - ABNORMAL LEVELS OF OTHER SERUM ENZYMES (3) Hypothyroid Code(s): E03.9 - HYPOTHYROIDISM, UNSPECIFIED (4) Lactic acidosis Code(s): E87.2 - ACIDOSIS (5) Leg edema Code(s): R60.0 - LOCALIZED EDEMA (6) Leukocytosis Code(s): D72.829 - ELEVATED WHITE BLOOD CELL COUNT, UNSPECIFIED (7) Pneumonia Code(s): J18.9 - PNEUMONIA, UNSPECIFIED ORGANISM (8) Pulmonary edema Code(s): J81.1 - CHRONIC PULMONARY EDEMA (9) Respiratory acidosis Code(s): E87.2 - ACIDOSIS (10) Urinary tract infection Code(s): N39.0 - URINARY TRACT INFECTION, SITE NOT SPECIFIED Assessment/Plan IV ABX AND RESP SUPPORT ON NC NEBS PULM AND ID F/U APPREICATED DVT PROPHYLAXIS OOB TO CHAIR
[2018-09-29 15:53] VITALS: BMI 44.8
[2018-09-29] MEDS: ATORVASTATIN CA 40 MG TABLET (FP) PO SCH (21:36)
[2018-09-29] MEDS: ACETAMINOPHEN 325 MG TABLET (FP) PO PRN (21:42)
[2018-09-30] MEDS: SODIUM CHLORIDE 1,000 ML IV SCH (00:02)
[2018-09-30] MEDS ORDERED: IBUPROFEN 400 MG TABLET (FP) PO PRN (01:51)
[2018-09-30] MEDS: LEVOTHYROXINE NA 50 MCG TABLET (FP) PO SCH (06:33)
[2018-09-30] MEDS: INSULIN (LEVEMIR) 100 UNITS/ML UNITS SQ SCH (06:36)
[2018-09-30] MEDS: INSULIN SLIDING SCALE (NOVOLOG) 1 VIAL SQ SCH ×2 (06:37→12:28)
[2018-09-30] MEDS: ALBUTEROL SO4 2.5/IPRATROPIUM 0.5 INH SOL 3 ML VIAL.NEB. NEB SCH ×2 (07:20→11:16)
--- NOTE | 2018-09-30 09:55 | PN ---
Progress Note, Physician History of Present Illness: PULMONARY ALERT,NO DISTRESS ,-SOB,-CP - Current Medication List Current Medications: Active Medications Acetaminophen (Tylenol -) 650 mg PO Q6H PRN PRN Reason: PAIN LEVEL 1-5 Last Admin: 09/29/18 21:42 Dose: 650 mg Albuterol/Ipratropium (Duoneb -) 1 amp NEB RQID [facility] Last Admin: 09/30/18 07:20 Dose: 1 amp Aspirin (Asa -) 81 mg PO DAILY [facility] Last Admin: 09/29/18 09:33 Dose: 81 mg Atorvastatin Calcium (Lipitor -) 40 mg PO HS [facility] Last Admin: 09/29/18 21:36 Dose: 40 mg Heparin Sodium (Porcine) (Heparin -) 5,000 unit SQ BID [facility] Last Admin: 09/29/18 21:36 Dose: 5,000 unit Azithromycin (Zithromax 500mg Ivpb (Pre-Docked)) 500 mg in 250 mls @ 250 mls/ hr IVPB DAILY [facility] Last Admin: 09/29/18 09:33 Dose: 250 mls/hr Ceftriaxone Sodium 1 gm/ (Dextrose) 50 mls @ 100 mls/hr IVPB DAILY [facility]; Protocol Last Admin: 09/29/18 09:33 Dose: 100 mls/hr Ibuprofen (Motrin -) 400 mg PO Q4H PRN PRN Reason: PAIN LEVEL 1 - 3 Last Admin: 09/30/18 04:30 Dose: 400 mg Insulin Aspart (Novolog Vial Sliding Scale -) 1 vial SQ ACHS [facility]; Protocol Last Admin: 09/30/18 06:37 Dose: 9 units Insulin Detemir (Levemir Vial) 40 units SQ AM [facility] Last Admin: 09/30/18 06:36 Dose: 40 units Insulin Detemir (Levemir Vial) 30 units SQ HS [facility] Last Admin: 09/29/18 21:36 Dose: 30 units Levothyroxine Sodium (Synthroid -) 50 mcg PO DAILY@0700 [facility] Last Admin: 09/30/18 06:33 Dose: 50 mcg Prednisone (Deltasone -) 30 mg PO DAILY [facility] - Objective Vital Signs: Vital Signs Temperature 97.9 F 09/30/18 06:00 Pulse Rate 80 09/30/18 06:00 Respiratory Rate 20 09/30/18 06:00 Blood Pressure 118/94 09/30/18 06:00 O2 Sat by Pulse Oximetry (%) 95 09/29/18 21:00 Constitutional: Yes: Well Nourished, Calm Eyes: Yes: WNL HENT: Yes: WNL Neck: Yes: WNL Cardiovascular: Yes: Regular Rate and Rhythm, S1, S2 Respiratory: Yes: Rales (FEW BIBASILAR RALES) Gastrointestinal: Yes: Normal Bowel Sounds, Soft Extremities: Yes: WNL Edema: Yes Labs: - ....Imaging Chest X-ray: Report Reviewed, Image Reviewed (IMPROVED CONGESTION) Assessment/Plan Assessment/Plan Acute Hypercapneic Respiratory Failure improved Pneumonia Acute COPD Exacerbation improving Lactic Acidosis improved r/o CHF HTN DM Hypothyroidism + Troponin - antibiotics - inhaled bronchodilators - Prednisone - O2 to keep SpO2 >90% - BiPAP as needed to assist in work of breathing - monitor urine output, creatinine - outpt PFTs - DVT prophylaxis - AMBULATORY O2 SAT ON RA DR GREEN
[2018-09-30] MEDS ORDERED: predniSONE 10 MG TABLET (UD) PO SCH (10:00)
[2018-09-30] MEDS ORDERED: cefTRIAXone SODIUM 1 GM VIAL ONE (10:26)
[2018-09-30] MEDS ORDERED: DEXTROSE 5%-WATER - 50 ML IVPB ONE (10:27)
[2018-09-30 10:32] LABS: RATIO URIN PROTEIN/URIN CREAT 0.41 MG/DL
[2018-09-30] MEDS: CEFTRIAXONE 1 GM in DEXTROSE 5%-WATER - 50 ML IVPB SCH (10:36)
[2018-09-30] MEDS: HEPARIN NA (PORCINE) 5,000 UNITS/ML 1ML VIAL SQ SCH (10:37)
[2018-09-30] MEDS: AZITHROMYCIN IVPB 500 MG/250 ML BAG IVPB SCH (10:37)
[2018-09-30] MEDS: ASPIRIN 81 MG CHEWABLE TABLETS PO SCH (10:37)
[2018-09-30 11:22] VITALS: PULSE 99
--- NOTE | 2018-09-30 12:05 | DS ---
Physical Examination Vital Signs: Vital Signs Temperature 97.9 F 09/30/18 06:00 Pulse Rate 99 H 09/30/18 11:19 Respiratory Rate 20 09/30/18 06:00 Blood Pressure 118/94 09/30/18 06:00 O2 Sat by Pulse Oximetry (%) 94 L 09/30/18 11:19 Constitutional: Yes: Calm Cardiovascular: Yes: Regular Rate and Rhythm, S1, S2 Respiratory: Yes: CTA Bilaterally Gastrointestinal: Yes: Normal Bowel Sounds, Soft Edema: Yes Neurological: Yes: Alert, Oriented Labs: CBC, BMP 09/29/18 05:30 09/29/18 05:30 Discharge Summary Reason For Visit: RESP ACIDOSIS,LEUKOCYTOSIS,PULM EDEMA,PNA Current Active Problems Diabetes (Acute) Elevated troponin (Acute) Hypothyroid (Acute) Lactic acidosis (Acute) Leg edema (Acute) Leukocytosis (Acute) Pneumonia (Acute) Pulmonary edema (Acute) Respiratory acidosis (Acute) Hospital Course: PCP: Sloan Arvizu - Admission Chief Complaint: came in for Shortness of breath since last night History of Present Illness: 78 y/o female presenting to [facility] ER in respiratory distress. Daughter at bedside reports she was called to the pts bedroom approx. 20 min prior to arrival. Pt breathing fast and complaining of difficulty breathing. Denied chest pain. Mother was in normal state of health prior to this morning. Believes mother has a h/o of CHF and COPD. per patient last night she felt short of breath and had difficulty breathing when she got up to make coffee , she has been noticing increase leg swelling as well no fever at home , she has been on antibiotic for last one week for UI but doesnot remeber the name in ER solumedrol, rocephin, albuterol,lasix, and nitro copd exacerbation , elevated troponin bc of stress of breathing iv medrol and iv abx now po prednisone seen by endocrine and insulin adjusted Condition: Stable - Instructions Diet, Activity, Other Instructions: prednisone taper 30mg for 2 days,20mg for 3 days,10mg for 3 days then stop Referrals: Sloan Arvizu MD [Primary Care Provider] - 1 Week Disposition: HOME - Home Medications Comprehensive Discharge Medication List: Ambulatory Orders Aspirin [ASA -] 81 mg PO DAILY 09/26/18 Furosemide [Lasix -] 40 mg PO DAILY 09/26/18 Gabapentin [Neurontin -] 100 mg PO Q8H 09/26/18 Insulin Glargine,Hum.rec.anlog [Basaglar Kwikpen U-100] 50 unit SQ DAILY Insulin Lispro [Humalog] See Protocol SQ AC PRN 09/26/18 Levothyroxine [Synthroid -] 75 mcg PO DAILY 09/26/18 Lisinopril [Prinivil -] 40 mg PO DAILY 09/26/18 Metformin HCl [Glucophage] 1,000 mg PO DAILY 09/26/18 Metoprolol Succinate [Toprol Xl -] 25 mg PO BID 09/26/18 Oxybutynin Chloride 5 mg PO DAILY 09/26/18 Potassium Chloride 10 meq PO DAILY 09/26/18
--- NOTE | 2018-09-30 12:35 | PN ---
Progress Note (short form) - Note Progress Note: Renal follow up for hyponatremia and azotemia Pt seen and examined at the bedside awake and alert feels better sob is improving no chest pain, abd pain, fever, chills, N/V/D making urine Vital Signs Temperature 97.9 F 09/30/18 06:00 Pulse Rate 99 H 09/30/18 11:19 Respiratory Rate 20 09/30/18 06:00 Blood Pressure 118/94 09/30/18 06:00 O2 Sat by Pulse Oximetry (%) 94 L 09/30/18 11:19 Intake & Output 09/27/18 09/28/18 09/29/18 09/30/18 23:59 23:59 23:59 23:59 Intake Total 275 310 818 740 Output Total 1350 1000 4700 200 Balance -1819 -690 -0242 540 Weight 100.879 kg 100.698 kg 102.058 kg NAD awake and alert RRR Dec BS, no rales soft NT/ND no LE edema CBC, BMP 09/29/18 05:30 09/29/18 05:30 Current Medications Acetaminophen (Tylenol -) 650 mg PO Q6H PRN PRN Reason: PAIN LEVEL 1-5 Last Admin: 09/29/18 21:42 Dose: 650 mg Albuterol/Ipratropium (Duoneb -) 1 amp NEB RQID [facility] Last Admin: 09/30/18 11:16 Dose: 1 amp Aspirin (Asa -) 81 mg PO DAILY [facility] Last Admin: 09/30/18 10:37 Dose: 81 mg Atorvastatin Calcium (Lipitor -) 40 mg PO HS [facility] Last Admin: 09/29/18 21:36 Dose: 40 mg Heparin Sodium (Porcine) (Heparin -) 5,000 unit SQ BID [facility] Last Admin: 09/30/18 10:37 Dose: 5,000 unit Azithromycin (Zithromax 500mg Ivpb (Pre-Docked)) 500 mg in 250 mls @ 250 mls/ hr IVPB DAILY [facility] Last Admin: 09/30/18 10:37 Dose: 250 mls/hr Ceftriaxone Sodium 1 gm/ (Dextrose) 50 mls @ 100 mls/hr IVPB DAILY [facility]; Protocol Last Admin: 09/30/18 10:36 Dose: 100 mls/hr Insulin Aspart (Novolog Vial Sliding Scale -) 1 vial SQ ACHS [facility]; Protocol Last Admin: 09/30/18 12:28 Dose: 9 units Insulin Detemir (Levemir Vial) 40 units SQ AM [facility] Last Admin: 09/30/18 06:36 Dose: 40 units Insulin Detemir (Levemir Vial) 30 units SQ HS [facility] Last Admin: 09/29/18 21:36 Dose: 30 units Levothyroxine Sodium (Synthroid -) 50 mcg PO DAILY@0700 [facility] Last Admin: 09/30/18 06:33 Dose: 50 mcg Prednisone (Deltasone -) 30 mg PO DAILY [facility] Last Admin: 09/30/18 10:36 Dose: 30 mg 78 year old woman with history of diabetes, dilated cardiomyopathy, htn, obesity , previous nephrolithiasis and hepatomegaly who presented with LEÓN and admitted for COPD exacerbation +/- CHF. #Pseudohyponatremia #Azotemia (elevated BUN in setting of steroids and diuretics) #COPD exacerbation #CHF Corrected Na is 136 although BUN is high, Cr stable taper steroids as per pulmonary diuretics as needed if discharged will need repeat labs in 5-7 days Duane Gunn DO
[2018-09-30 12:48] VITALS: BP 128/60; TEMP 97.6
[2018-10-01 20:11] LABS: HEP B CORE AB, IGM Negative (Negative); HEP B CORE AB, TOT Negative (Negative)
== END 2018-09-30 14:45 | disposition home or self-care (01) | DRG 193 ==
LOC: JER 05:52 → JERBED 07:32 → J4W 16:10
PROVIDERS: ADMIT Family Medicine; ATTEND Family Medicine
PROC: 5A09357 Assistance with Respiratory Ventilation, Less than 24 Consecutive Hours, Continuous Positive Airway Pressure (ICD-10-PCS; principal; 2018-09-29)
DX: J18.9 Pneumonia, unspecified organism (principal); J96.02 Acute respiratory failure with hypercapnia; J44.0 Chronic obstructive pulmonary disease with (acute) lower respiratory infection; J81.1 Chronic pulmonary edema; E87.1 Hypo-osmolality and hyponatremia; E87.4 Mixed disorder of acid-base balance; I42.0 Dilated cardiomyopathy; Z68.41 Body mass index [BMI] 40.0-44.9, adult; J44.1 Chronic obstructive pulmonary disease with (acute) exacerbation; E87.2 Acidosis; D72.829 Elevated white blood cell count, unspecified; E11.9 Type 2 diabetes mellitus without complications; I25.10 Atherosclerotic heart disease of native coronary artery without angina pectoris; E66.9 Obesity, unspecified; I11.0 Hypertensive heart disease with heart failure; I50.9 Heart failure, unspecified; E03.9 Hypothyroidism, unspecified; Z98.61 Coronary angioplasty status
CPT/HCPCS: 36415; 36600; 71045-TC-FY; 71250-TC; 80048; 80053; 80061; 81003; 82375; 82550; 82553; 82570; 82803; 82947; 82962; 83036; 83050; 83605; 83721; 83735; 83880; 84100; 84156; 84443; 84484; 85025; 85027; 85610; 85730; 86704; 86705; 86706; 86707; 86803; 87040; 87086; 87899; 93005; 93010; 93306-TC; 94640; 94660; 94761; 99285-25; J0131; J1644; J7030

== ENCOUNTER 2018-11-03 17:58 | Emergency (ER) | payer MEDICARE ==
[2018-11-03 18:38] VITALS: BMI 44.4
--- NOTE | 2018-11-03 18:55 | PDOC ---
History of Present Illness - General Chief Complaint: Lightheaded Stated Complaint: SWOLLEN L LEG/CONSTIPATED/DIZZY/RADIATING PAIN Time Seen by Provider: 11/03/18 18:54 History Source: Patient, Family - History of Present Illness Initial Comments: 11/03/18 19:48 Ms. Moffett is a 78 y/o woman with hx of T2DM on insulin, hypothyroidism, HTN, HLD, COPD, and recent hospitalization for shortness of breath p/w 3 days of constipation, nausea, and LLE swelling. She reports that she last passed stool 3 days ago, and that it was its normal color and consistency. She reports noting pain in the back of her leg, running down from her upper L thigh down to her foot, 3 days ago as well. She reports attempting to increase prune juice intake for the constipation with no improvement. She reports today starting Senna 50 mg x3 pills this morning. Timing/Duration: other (3 days) Severity: mild Past History - Past Medical History Allergies/Adverse Reactions: Allergies Allergy/AdvReac Type Severity Reaction Status Date / Time Sulfa (Sulfonamide Allergy Verified 11/03/18 18:38 Antibiotics) Home Medications: Ambulatory Orders Aspirin [ASA -] 81 mg PO DAILY 09/26/18 Furosemide [Lasix -] 40 mg PO DAILY 09/26/18 Insulin Glargine,Hum.rec.anlog [Basaglar Kwikpen U-100] 50 unit SQ DAILY Insulin Lispro [Humalog] See Protocol SQ AC PRN 09/26/18 Metoprolol Succinate [Toprol XL -] 25 mg PO BID 09/26/18 Oxybutynin Chloride 5 mg PO DAILY 09/26/18 Potassium Chloride 10 meq PO DAILY 09/26/18 Insulin Detemir [Levemir Flextouch] 20 unit SQ HS #100 ml MDD 1 09/30/18 Levothyroxine [Synthroid -] 50 mcg PO DAILY@0700 #30 tablet MDD 1 09/30/18 predniSONE [Deltasone -] 30 mg PO DAILY #14 tablet MDD 3 09/30/18 Cyclobenzaprine HCl [Flexeril 10 mg] 10 mg PO DAILY PRN #7 tablet MDD 1 tab 12/16 Anemia: No Asthma: No Cancer: No Cardiac Disorders: Yes ([facility]) CVA: No COPD: Yes CHF: Yes Dementia: No Diabetes: Yes GI Disorders: No Disorders: Yes (UTI) HTN: Yes Hypercholesterolemia: Yes Liver Disease: Yes (Fatty Liver) Seizures: No Thyroid Disease: Yes - Surgical History Abdominal Surgery: No Appendectomy: Yes Cardiac Surgery: Yes (angioplasty) Cholecystectomy: No Lung Surgery: No Neurologic Surgery: No Orthopedic Surgery: No - Suicide/Smoking/Psychosocial Hx Smoking History: Never smoked Have you smoked in the past 12 months: No Hx Alcohol Use: No Drug/Substance Use Hx: No Substance Use Type: None *Physical Exam - Vital Signs Last Vital Signs Temp Pulse Resp BP Pulse Ox 98.4 F 77 18 115/88 96 11/03/18 18:35 11/03/18 18:35 11/03/18 18:35 11/03/18 18:35 11/03/18 18:35 ED Treatment Course - LABORATORY CBC & Chemistry Diagram: 11/03/18 20:25 11/03/18 20:25 Medical Decision Making - Medical Decision Making 11/03/18 20:20 78 y/o F with hx COPD, recent hospitalization, CHF, T2DM p/w 3 days of constipation and LLE pain and swelling with one episode of lightheadedness, most consistent with LE edema and uncomplicated constipation given short course of constipation with gas movement. DVT also possible given unilateral LE edema and tenderness with recent hospitalization, although pain may be attributable to sciatica given positive straight leg raise. Constipation most likely uncomplicated, but cannot rule out electrolyte abnormality as cause. Further, lightheadedness may be orthostatic due to chronic dehydration, but may be due to electrolyte abnormality or anemia. Plan: CBC w/diff CMP LLE venous duplex Dispo: Likely discharge pending LE duplex and electrolytes --- Electrolytes within normal limits. Dispo pending US read 11/04/18 00:18 Ultrasound resulted - hughes's cyst Plan for outpatient care, pain control with motrin, flexeril Pt will follow up with PCP as needed *DC/Admit/Observation/Transfer Diagnosis at time of Disposition: Sciatica Qualifiers: Laterality: left Qualified Code(s): M54.32 - Sciatica, left side Hughes cyst Qualifiers: Laterality: left Qualified Code(s): M71.22 - Synovial cyst of popliteal space [ Hughes], left knee - Discharge Dispostion Disposition: HOME Condition at time of disposition: Stable Decision to Admit order: No - Prescriptions Prescriptions: Cyclobenzaprine HCl [Flexeril 10 mg] 10 mg PO DAILY PRN #7 tablet MDD 1 tab PRN Reason: Muscle Spasms - Referrals Referrals: Sloan Arvizu MD [Primary Care Provider] - - Patient Instructions Printed Discharge Instructions: DI for Hughes's Cyst, DI for Sciatica, DI for Constipation Additional Instructions: You were evaluated in the Emergency Department by Dr. Patterson and Dr. Keller. We evaluated your symptoms, conducted a medical history and physical exam, ordered bloodwork, and conducted an ultrasound of your left leg. We are diagnosing you with a hughes cyst of the left leg, as well as sciatica of the left leg. Please follow up with your primary care provider as soon as possible. Please return if you develop any fevers, worsening pain, fevers, or worsening swelling in the leg. - Post Discharge Activity
--- NOTE | 2018-11-03 20:27 | PDOC ---
Documentation entered by Ana Lilia Bautista SCRIBE, acting as scribe for Nehal Keller MD. Nehal Keller MD: This documentation has been prepared by the Lily contreras Sammi, SCRIBE, under my direction and personally reviewed by me in its entirety. I confirm that the documentation accurately reflects all work, treatment, procedures, and medical decision making performed by me. Attending Attestation - Resident Resident Name: YeseniaLam - ED Attending Attestation I have performed the following: I have examined & evaluated the patient, The case was reviewed & discussed with the resident, I agree w/resident's findings & plan, Exceptions are as noted - HPI HPI: 11/03/18 19:57 The patient is a 78 year old female, with a significant PMH of IDDM, HTN, high cholesterol, HLD, COPD, who presents to the emergency department for evaluation of 3 days of constipation and lower extremity pain and edema. The patient reports a last bowel movement 3 days ago that was normal in color and consistency. Denies change in diet. Denies fever and vomiting. She notes taking Senna earlier today with no relief. The patient states the lower extremity edema began 3 days ago as well. Denies exacerbating or alleviating factors. The patient also complains of 1 episode of lightheadedness. Of note, the patient was recently admitted for new onset COPD. Allergies: Bactrim - Physicial Exam PE: 11/03/18 23:54 obese 78 yo female p/w pain radiating from buttocks to back of her knee head ncat neck supple lungs cta b/l cvs [id number] abd large reducible ventral hernia ext left leg w mild edema, pain behind the left knee skin warm and dry neuro axox3,ambulates e her walker psych appropriate 11/04/18 00:03 - Medical Decision Making 11/04/18 00:06 duplex doppler is negative for DVT, there is a Hughes's cyst imp: Hughes's cyst/sciatica plan pain meds and d/c home
[2018-11-03 21:01] LABS: BASO % 0.9 % (0-2.0); HEMATOCRIT 38.3 % (32.4-45.2); HEMOGLOBIN 13.3 GM/dL (10.7-15.3); LYMPH % 21.7 % (8-40); MCH 32.5 pg (25.7-33.7); MCHC 34.7 g/dl (32.0-36.0); MEAN CELL VOLUME 93.6 fl (80-96); MONO % 7.9 % (3.8-10.2); NEUT % 67.5 % (42.8-82.8); PLATELET COUNT 239 K/MM3 (134-434); RBC 4.09 M/mm3 (3.60-5.2); RDW 12.9 % (11.6-15.6); WHITE BLOOD COUNT 7.7 K/mm3 (4.0-10.0)
[2018-11-03 21:08] LABS: ALBUMIN 3.7 g/dl (3.4-5.0); BILIRUBIN,TOTAL 0.5 mg/dL (0.2-1); BLOOD UREA NITROGEN 15.7 mg/dL (7-18); CALCIUM 9.6 mg/dL (8.5-10.1); CREATININE 0.7 mg/dL (0.55-1.3); POTASSIUM 3.8 mmol/L (3.5-5.1); TOT PROT 7.1 g/dl (6.4-8.2)
[2018-11-03] MEDS ORDERED: IBUPROFEN 400 MG TABLET (FP) PO ONE ×2 (23:11→23:18)
[2018-11-04 00:26] VITALS: BP 130/60; PULSE 70; TEMP 97.4
== END 2018-11-04 00:27 | disposition home or self-care (01) ==
LOC: JER 17:58
DX: M54.32 Sciatica, left side (principal); M71.22 Synovial cyst of popliteal space [Baker], left knee; I50.9 Heart failure, unspecified; E11.9 Type 2 diabetes mellitus without complications; J44.9 Chronic obstructive pulmonary disease, unspecified
CPT/HCPCS: 36415; 80053; 83880; 85025; 93971-TC; 99283-25

== ENCOUNTER 2020-10-02 13:44 | Inpatient (IN) | payer MEDICARE ==
[2020-10-02 14:44] LABS: EOS % 3.3 % (0-4.5); HEMATOCRIT 42.2 % (32.4-45.2); HEMOGLOBIN 14.5 GM/dL (10.7-15.3); LYMPH % 27.9 % (8-40); MCH 33.1 pg (25.7-33.7); MCHC 34.4 g/dl (32.0-36.0); MEAN CELL VOLUME 96.3 fl (80-96); MEAN PLT VOLUME 8.6 fl (7.5-11.1); NEUT % 59.8 % (42.8-82.8); PLATELET COUNT 206 K/MM3 (134-434); RBC 4.38 M/mm3 (3.60-5.2); WHITE BLOOD COUNT 7.6 K/mm3 (4.0-10.0)
[2020-10-02 14:48] LABS: VENOUS BASE EXCESS 0.8 mmol/L (-2-2); VENOUS PCO2 59.8 mmHg (38-52); VENOUS PH 7.301 (7.310-7.410)
[2020-10-02 14:50] LABS: INR 0.95 (0.83-1.09); PROTHROMBIN TIME (PATIENT) 11.7 SEC (9.7-13.0)
[2020-10-02 14:53] LABS: ACTIVATED PTT 34.3 SECONDS (25.2-36.5)
[2020-10-02 15:11] LABS: CHLORIDE 101 mmol/L (98-107); SODIUM 138 mmol/L (136-145)
[2020-10-02 15:13] LABS: CALCIUM 9.7 mg/dL (8.5-10.1)
[2020-10-02 15:15] LABS: ALBUMIN 3.5 g/dl (3.4-5.0); ANION GAP 3 MMOL/L (8-16); BLOOD UREA NITROGEN 20.7 mg/dL (7-18); CO2 33 mmol/L (21-32); GLUCOSE,RANDOM 147 mg/dL (74-106); MAGNESIUM 1.9 mg/dL (1.8-2.4)
[2020-10-02 15:18] LABS: BILIRUBIN,TOTAL 0.4 mg/dL (0.2-1); CREATININE 0.7 mg/dL (0.55-1.3); PHOSPHOROUS 3.3 mg/dL (2.5-4.9); SGOT/AST 15 U/L (15-37); SGPT/ALT 19 U/L (13-61); TOT PROT 7.1 g/dl (6.4-8.2)
[2020-10-02 15:20] LABS: ALK PHOS 115 U/L (45-117)
[2020-10-02] MEDS ORDERED: DEXAMETHASONE SOD PHOSPHATE 10 MG/1 ML VIAL IVPUSH ONE (15:47)
[2020-10-02] MEDS ORDERED: ALBUTEROL SO4 2.5/IPRATROPIUM 0.5 INH SOL 3 ML VIAL.NEB. NEB ONE ×2 (15:49→15:52)
[2020-10-02] MEDS ORDERED: DEXAMETHASONE SOD PHOSPHATE 10 MG/1 ML VIAL ONE (15:53)
[2020-10-02] MEDS ORDERED: FUROSEMIDE 40 MG/4 ML INJECTABLE VIAL IVPUSH ONE (15:53)
[2020-10-02] MEDS ORDERED: ALBUTEROL SO4 2.5/IPRATROPIUM 0.5 INH SOL 3 ML VIAL.NEB. NEB SCH (16:00)
[2020-10-02] MEDS ORDERED: FUROSEMIDE 40 MG/4 ML INJECTABLE VIAL ONE (16:15)
[2020-10-02] MEDS: NYSTATIN POWDER 100,000 UNITS/GM - 15 GM TOPICAL POWDER TP SCH (22:00)
[2020-10-02] MEDS: ATORVASTATIN CA 40 MG TABLET (FP) PO SCH (22:19)
[2020-10-02] MEDS: FUROSEMIDE 40 MG/4 ML INJECTABLE VIAL IVPUSH SCH (22:20)
[2020-10-02] MEDS: metoPROLOL SUCCINATE 25 MG TAB.SR.24H (FP) PO SCH (22:20)
[2020-10-02] MEDS: HEPARIN NA (PORCINE) 5,000 UNITS/ML 1ML VIAL SQ SCH (22:20)
[2020-10-02] MEDS: INSULIN (NOVOLOG) ASPART 100 UNITS/ML 10ML VIAL SQ SCH (22:20)
[2020-10-03 01:50] VITALS: BMI 44.3
[2020-10-03 06:34] LABS: BASO % 0.3 % (0-2.0); HEMOGLOBIN 14.9 GM/dL (10.7-15.3); LYMPH % 11.2 % (8-40); MCH 33.5 pg (25.7-33.7); MCHC 34.7 g/dl (32.0-36.0); MEAN CELL VOLUME 96.6 fl (80-96); MEAN PLT VOLUME 9.5 fl (7.5-11.1); MONO % 2.4 % (3.8-10.2); NEUT % 86.1 % (42.8-82.8); PLATELET COUNT 227 K/MM3 (134-434); RBC 4.45 M/mm3 (3.60-5.2); WHITE BLOOD COUNT 9.1 K/mm3 (4.0-10.0)
[2020-10-03] MEDS: INSULIN (NOVOLOG) ASPART 100 UNITS/ML 10ML VIAL SQ SCH ×4 (06:50→21:46)
[2020-10-03] MEDS: LEVOTHYROXINE NA 50 MCG TABLET (FP) PO SCH (06:50)
[2020-10-03 06:55] LABS: CHLORIDE 95 mmol/L (98-107); SODIUM 136 mmol/L (136-145)
[2020-10-03 07:00] LABS: ALBUMIN 3.6 g/dl (3.4-5.0); CALCIUM 9.5 mg/dL (8.5-10.1)
[2020-10-03] MEDS ORDERED: INSULIN (LEVEMIR) 100 UNITS/ML UNITS SQ SCH (07:00)
[2020-10-03 07:02] LABS: ANION GAP 7 MMOL/L (8-16); BLOOD UREA NITROGEN 23.9 mg/dL (7-18); CO2 33 mmol/L (21-32); GLUCOSE,RANDOM 253 mg/dL (74-106); MAGNESIUM 1.9 mg/dL (1.8-2.4)
[2020-10-03 07:03] LABS: SGPT/ALT 19 U/L (13-61)
[2020-10-03 07:05] LABS: BILIRUBIN,TOTAL 0.5 mg/dL (0.2-1); CREATININE 0.7 mg/dL (0.55-1.3); SGOT/AST 15 U/L (15-37); TOT PROT 7.5 g/dl (6.4-8.2)
[2020-10-03 07:06] LABS: ALK PHOS 114 U/L (45-117)
[2020-10-03] MEDS ORDERED: PT OWN MED DRAWER 7, Y5N ONE (10:38)
[2020-10-03] MEDS: metoPROLOL SUCCINATE 25 MG TAB.SR.24H (FP) PO SCH ×2 (10:42→21:49)
[2020-10-03] MEDS: EZETIMIBE 10 MG TABLET (FP) PO SCH (10:42)
[2020-10-03] MEDS: POTASSIUM CHLORIDE TABS 20 MEQ TABLET.ER (FP) PO SCH (10:42)
[2020-10-03] MEDS: HEPARIN NA (PORCINE) 5,000 UNITS/ML 1ML VIAL SQ SCH ×2 (10:42→21:50)
[2020-10-03] MEDS: LOSARTAN POTASSIUM 25 MG TABLET PO SCH (10:42)
[2020-10-03] MEDS: ASPIRIN 81 MG CHEWABLE TABLETS PO SCH (10:42)
[2020-10-03] MEDS: FUROSEMIDE 40 MG/4 ML INJECTABLE VIAL IVPUSH SCH ×2 (10:43→21:49)
[2020-10-03] MEDS: NYSTATIN POWDER 100,000 UNITS/GM - 15 GM TOPICAL POWDER TP SCH ×2 (14:57→21:57)
[2020-10-03] MEDS: OXYBUTYNIN CHLORIDE 5 MG TABLET PO SCH (14:58)
[2020-10-03] MEDS ORDERED: ARTIFICIAL TEARS (POLYVINYL ALCOHOL) OPTH DROPS OU PRN (21:48)
[2020-10-03] MEDS: ATORVASTATIN CA 40 MG TABLET (FP) PO SCH (21:49)
[2020-10-03] MEDS ORDERED: ACETAMINOPHEN 325 MG TABLET (FP) PO ONE (22:27)
[2020-10-04] MEDS: INSULIN (LEVEMIR) 100 UNITS/ML UNITS SQ SCH (06:38)
[2020-10-04] MEDS: INSULIN (NOVOLOG) ASPART 100 UNITS/ML 10ML VIAL SQ SCH ×4 (06:39→21:18)
[2020-10-04] MEDS: LEVOTHYROXINE NA 50 MCG TABLET (FP) PO SCH (06:40)
[2020-10-04] MEDS ORDERED: PT OWN MED DRAWER 7, Y5N ONE (09:45)
[2020-10-04] MEDS: EZETIMIBE 10 MG TABLET (FP) PO SCH (09:47)
[2020-10-04] MEDS: HEPARIN NA (PORCINE) 5,000 UNITS/ML 1ML VIAL SQ SCH ×2 (09:47→21:17)
[2020-10-04] MEDS: POTASSIUM CHLORIDE TABS 20 MEQ TABLET.ER (FP) PO SCH (09:47)
[2020-10-04] MEDS: ASPIRIN 81 MG CHEWABLE TABLETS PO SCH (09:47)
[2020-10-04] MEDS: OXYBUTYNIN CHLORIDE 5 MG TABLET PO SCH (09:48)
[2020-10-04] MEDS: NYSTATIN POWDER 100,000 UNITS/GM - 15 GM TOPICAL POWDER TP SCH ×2 (09:51→21:23)
[2020-10-04] MEDS: metoPROLOL SUCCINATE 25 MG TAB.SR.24H (FP) PO SCH ×2 (09:53→21:13)
[2020-10-04] MEDS: LOSARTAN POTASSIUM 25 MG TABLET PO SCH (09:53)
[2020-10-04] MEDS: FUROSEMIDE 40 MG/4 ML INJECTABLE VIAL IVPUSH SCH ×2 (11:31→21:18)
[2020-10-04] MEDS: ATORVASTATIN CA 40 MG TABLET (FP) PO SCH (21:18)
[2020-10-05] MEDS: ACETAMINOPHEN 325 MG TABLET (FP) PO PRN (01:05)
[2020-10-05] MEDS: LEVOTHYROXINE NA 50 MCG TABLET (FP) PO SCH (06:07)
[2020-10-05] MEDS: INSULIN (LEVEMIR) 100 UNITS/ML UNITS SQ SCH (06:09)
[2020-10-05] MEDS: INSULIN (NOVOLOG) ASPART 100 UNITS/ML 10ML VIAL SQ SCH ×4 (06:09→21:30)
[2020-10-05] MEDS: OXYBUTYNIN CHLORIDE 5 MG TABLET PO SCH (10:25)
[2020-10-05] MEDS: LOSARTAN POTASSIUM 25 MG TABLET PO SCH (10:25)
[2020-10-05] MEDS: EZETIMIBE 10 MG TABLET (FP) PO SCH (10:25)
[2020-10-05] MEDS: POTASSIUM CHLORIDE TABS 20 MEQ TABLET.ER (FP) PO SCH (10:25)
[2020-10-05] MEDS: metoPROLOL SUCCINATE 25 MG TAB.SR.24H (FP) PO SCH ×2 (10:26→21:30)
[2020-10-05] MEDS: HEPARIN NA (PORCINE) 5,000 UNITS/ML 1ML VIAL SQ SCH ×2 (10:26→21:30)
[2020-10-05] MEDS: ASPIRIN 81 MG CHEWABLE TABLETS PO SCH (10:26)
[2020-10-05] MEDS: NYSTATIN POWDER 100,000 UNITS/GM - 15 GM TOPICAL POWDER TP SCH ×2 (10:30→21:30)
[2020-10-05] MEDS: FUROSEMIDE 40 MG/4 ML INJECTABLE VIAL IVPUSH SCH (11:33)
[2020-10-05] MEDS ORDERED: INSULIN (NOVOLOG) ASPART 100 UNITS/ML 10ML VIAL ONE (11:57)
[2020-10-05] MEDS ORDERED: INSULIN (LEVEMIR) 100 UNITS/ML UNITS SQ SCH (14:50)
[2020-10-05] MEDS: ATORVASTATIN CA 40 MG TABLET (FP) PO SCH (21:30)
[2020-10-05] MEDS ORDERED: INSULIN (NOVOLOG) ASPART 100 UNITS/ML 10ML VIAL SQ SCH (22:56)
[2020-10-06] MEDS: FUROSEMIDE 40 MG TABLET (FP) PO SCH ×2 (05:57→13:15)
[2020-10-06] MEDS: LEVOTHYROXINE NA 50 MCG TABLET (FP) PO SCH (06:14)
[2020-10-06] MEDS: INSULIN SLIDING SCALE (NOVOLOG) 1 VIAL SQ SCH ×3 (06:20→17:41)
[2020-10-06] MEDS ORDERED: PT OWN MED DRAWER 7, Y5N ONE ×2 (09:23→12:37)
[2020-10-06] MEDS ORDERED: INSULIN (LEVEMIR) 100 UNITS/ML UNITS SQ SCH (10:00)
[2020-10-06] MEDS: OXYBUTYNIN CHLORIDE 5 MG TABLET PO SCH (10:01)
[2020-10-06] MEDS: LOSARTAN POTASSIUM 25 MG TABLET PO SCH (10:01)
[2020-10-06] MEDS: HEPARIN NA (PORCINE) 5,000 UNITS/ML 1ML VIAL SQ SCH (10:01)
[2020-10-06] MEDS: EZETIMIBE 10 MG TABLET (FP) PO SCH (10:02)
[2020-10-06] MEDS: POTASSIUM CHLORIDE TABS 20 MEQ TABLET.ER (FP) PO SCH (10:02)
[2020-10-06] MEDS: ASPIRIN 81 MG CHEWABLE TABLETS PO SCH (10:02)
[2020-10-06] MEDS: NYSTATIN POWDER 100,000 UNITS/GM - 15 GM TOPICAL POWDER TP SCH (10:02)
[2020-10-06] MEDS: metoPROLOL SUCCINATE 25 MG TAB.SR.24H (FP) PO SCH (11:55)
[2020-10-06 15:12] LABS: EPI CELLS 32 /uL (0-25.1); HYALINE CASTS 1 /uL (0-3.1); URINE APPEARANCE TURBID; URINE BACTERIA 491 /uL (0-1359); URINE BILIRUBIN NEGATIVE (NEGATIVE); URINE COLOR YELLOW; URINE GLUCOSE (UA) 1+ (NEGATIVE); URINE KETONE NEGATIVE (NEGATIVE); URINE LEUK ESTERASE 3+ (NEGATIVE); URINE NITRITE NEGATIVE (NEGATIVE); URINE PROTEIN NEGATIVE (NEGATIVE); URINE UROBILINOGEN 0.2 mg/dL (0.2-1.0); URINE WBC 1577 /uL (0-25.8)
[2020-10-06 15:18] LABS: URINE RBC 89.4 /uL (0-23.9)
[2020-10-06] MEDS ORDERED: INSULIN (NOVOLOG) ASPART 100 UNITS/ML 10ML VIAL ONE (16:27)
[2020-10-06] MEDS: ACETAMINOPHEN 325 MG TABLET (FP) PO PRN (16:35)
[2020-10-06 19:16] VITALS: BP 114/56; PULSE 60; TEMP 97.9
== END 2020-10-06 19:15 | disposition home health service (06) | DRG 292 ==
LOC: JER 13:44 → JERBED 16:41 → J4W 22:03
PROVIDERS: ADMIT Family Medicine; ATTEND Family Medicine
DX: I11.0 Hypertensive heart disease with heart failure (principal); Z68.41 Body mass index [BMI] 40.0-44.9, adult; E66.9 Obesity, unspecified; I50.33 Acute on chronic diastolic (congestive) heart failure; J44.9 Chronic obstructive pulmonary disease, unspecified; E11.9 Type 2 diabetes mellitus without complications; I25.10 Atherosclerotic heart disease of native coronary artery without angina pectoris; E78.5 Hyperlipidemia, unspecified; K46.9 Unspecified abdominal hernia without obstruction or gangrene; K76.0 Fatty (change of) liver, not elsewhere classified; Z87.442 Personal history of urinary calculi; Z95.5 Presence of coronary angioplasty implant and graft
CPT/HCPCS: 36415; 71045-TC-FY; 71046-TC-FY; 77063-TC; 77067-TC; 80053; 81003; 82550; 82553; 82803; 82962; 83036; 83735; 83880; 84100; 84443; 84484; 85025; 85610; 85730; 87086; 87186; 93005; 93010; 94761; 97116-GP; 99285-25; C9803; J1100; J1644; U0003; U0005

== ENCOUNTER 2022-10-29 23:56 | Emergency (ER) | payer OTHER, MEDICARE ==
[2022-10-30] VITALS: BP 150/72; PULSE 60; RESP 18; TEMP 97.9; BMI 44.4
[2022-10-30] MEDS ORDERED: ACETAMINOPHEN 325 MG TABLET (FP) PO ONE (00:35)
[2022-10-30] MEDS ORDERED: ACETAMINOPHEN 325 MG TABLET (FP) ONE (00:47)
== END 2022-10-30 03:50 | disposition home or self-care (01) ==
LOC: JER 23:56
DX: Z04.3 Encounter for examination and observation following other accident (principal)
CPT/HCPCS: 70450-TC; 71046-TC-FY; 72125-TC; 72170-TC-FY; 93005; 93010; 99285-25

== ENCOUNTER 2022-12-18 16:36 | Observation (INO) | payer OTHER, MEDICARE ==
[2022-12-18] MEDS ORDERED: FUROSEMIDE 40 MG/4 ML INJECTABLE VIAL IVPUSH ONE (18:18)
[2022-12-18] MEDS ORDERED: FUROSEMIDE 40 MG/4 ML INJECTABLE VIAL ONE (18:33)
[2022-12-18 18:51] LABS: BASO % 1.1 % (0-2.0); EOS % 4.3 % (0-4.5); HEMATOCRIT 38.6 % (32.4-45.2); HEMOGLOBIN 13.3 GM/dL (10.7-15.3); LYMPH % 25.6 % (8-40); MCH 31.4 pg (25.7-33.7); MCHC 34.4 g/dl (32.0-36.0); MEAN CELL VOLUME 91.3 fl (80-96); MEAN PLT VOLUME 9.2 fl (7.5-11.1); MONO % 7.2 % (3.8-10.2); NEUT % 61.8 % (42.8-82.8); PLATELET COUNT 195 10^3/uL (134-434); RBC 4.23 M/mm3 (3.60-5.2); RDW 13.1 % (11.6-15.6); WHITE BLOOD COUNT 8.6 K/mm3 (4.0-10.0)
[2022-12-18 19:10] LABS: POTASSIUM 4.2 mmol/L (3.5-5.1)
[2022-12-18 19:12] LABS: CALCIUM 9.6 mg/dL (8.5-10.1)
[2022-12-18 19:13] LABS: ALBUMIN 3.6 g/dl (3.4-5.0)
[2022-12-18 19:16] LABS: CREATININE 0.7 mg/dL (0.55-1.3)
[2022-12-18 19:17] LABS: BILIRUBIN,TOTAL 0.4 mg/dL (0.2-1); TOT PROT 7.4 g/dl (6.4-8.2)
[2022-12-18 19:20] LABS: N-TERMINAL BNP 457.5 pg/ml (5-450)
[2022-12-18] MEDS ORDERED: ACETAMINOPHEN 325 MG TABLET (FP) PO PRN (21:05)
[2022-12-18] MEDS ORDERED: DOCUSATE SODIUM 100 MG CAPSULE (FP) PO PRN (21:05)
[2022-12-18] MEDS ORDERED: ACETAMINOPHEN INJECTION 100 ML IVPB ONE (22:11)
[2022-12-18] MEDS: INSULIN SLIDING SCALE (NOVOLOG) 1 VIAL SQ SCH (22:24)
[2022-12-18] MEDS: ACETAMINOPHEN 1000 MG/100 ML BAG IVPB PRN (22:25)
[2022-12-19 02:14] VITALS: BMI 18.3
[2022-12-19] MEDS ORDERED: ALBUTEROL SO4 2.5/IPRATROPIUM 0.5 INH SOL 3 ML VIAL.NEB. NEB PRN (06:02)
[2022-12-19] MEDS ORDERED: LISINOPRIL 20 MG TABLET PO ONE (06:03)
[2022-12-19] MEDS ORDERED: FUROSEMIDE 40 MG/4 ML INJECTABLE VIAL IVPUSH ONE (06:06)
[2022-12-19] MEDS ORDERED: LEVOTHYROXINE NA 50 MCG TABLET (FP) PO SCH (07:00)
[2022-12-19] MEDS ORDERED: INSULIN (NOVOLOG) ASPART 100 UNITS/ML 10ML VIAL ONE ×2 (07:31→12:41)
[2022-12-19] MEDS: INSULIN SLIDING SCALE (NOVOLOG) 1 VIAL SQ SCH ×2 (07:32→12:43)
[2022-12-19 07:51] LABS: BASO % 0.9 % (0-2.0); EOS % 4.3 % (0-4.5); HEMATOCRIT 39.1 % (32.4-45.2); LYMPH % 26.7 % (8-40); MCHC 33.4 g/dl (32.0-36.0); MEAN CELL VOLUME 92.7 fl (80-96); MEAN PLT VOLUME 9.9 fl (7.5-11.1); NEUT % 61.1 % (42.8-82.8); PLATELET COUNT 202 10^3/uL (134-434); RBC 4.21 M/mm3 (3.60-5.2); RDW 13.1 % (11.6-15.6); WHITE BLOOD COUNT 9.6 K/mm3 (4.0-10.0)
[2022-12-19 07:56] LABS: ACTIVATED PTT 33.4 SECONDS (25.2-36.5)
[2022-12-19 08:13] LABS: POTASSIUM 3.6 mmol/L (3.5-5.1)
[2022-12-19 08:27] LABS: INR 1.04 (0.83-1.09); PROTHROMBIN TIME (PATIENT) 12.1 SEC (9.7-13.0)
[2022-12-19 08:36] LABS: CALCIUM 9.7 mg/dL (8.5-10.1)
[2022-12-19 08:37] LABS: BLOOD UREA NITROGEN 14.2 mg/dL (7-18); MAGNESIUM 1.8 mg/dL (1.8-2.4)
[2022-12-19 08:40] LABS: CREATININE 0.7 mg/dL (0.55-1.3); PHOSPHOROUS 3.7 mg/dL (2.5-4.9)
[2022-12-19] MEDS ORDERED: EZETIMIBE 10 MG TABLET (FP) PO SCH (10:00)
[2022-12-19] MEDS ORDERED: ASPIRIN 81 MG CHEWABLE TABLETS PO SCH (10:00)
[2022-12-19] MEDS ORDERED: OXYBUTYNIN CHLORIDE 5 MG TABLET PO SCH (10:00)
[2022-12-19] MEDS ORDERED: metoPROLOL SUCCINATE 25 MG TAB.SR.24H (FP) PO SCH (10:00)
[2022-12-19] MEDS: ACETAMINOPHEN 1000 MG/100 ML BAG IVPB PRN (10:13)
[2022-12-19 13:07] LABS: EPI CELLS 13 /uL (0-25.1); HYALINE CASTS 1 /uL (0-3.1); PH,URINE 5.5 (5.0-8.0); URINE APPEARANCE CLEAR; URINE BACTERIA 390 /uL (0-1359); URINE BILIRUBIN NEGATIVE (NEGATIVE); URINE COLOR YELLOW; URINE GLUCOSE (UA) NEGATIVE (NEGATIVE); URINE KETONE NEGATIVE (NEGATIVE); URINE LEUK ESTERASE 2+ (NEGATIVE); URINE NITRITE NEGATIVE (NEGATIVE); URINE PROTEIN NEGATIVE (NEGATIVE); URINE RBC 14 /uL (0-23.9); URINE UROBILINOGEN 0.2 mg/dL (0.2-1.0); URINE WBC 334 /uL (0-25.8)
[2022-12-19] MEDS ORDERED: FUROSEMIDE 40 MG TABLET (FP) PO SCH (14:00)
[2022-12-19 15:50] VITALS: RESP 20
[2022-12-19 17:51] VITALS: BP 124/56; PULSE 54; TEMP 98
[2022-12-19] MEDS ORDERED: ACETAMINOPHEN 325 MG TABLET (FP) PO PRN (21:05)
[2022-12-19] MEDS ORDERED: ATORVASTATIN CA 40 MG TABLET (FP) PO SCH (22:00)
[2022-12-19] MEDS ORDERED: ROSUVASTATIN CA 20 MG TABLET PO SCH (22:00)
== END 2022-12-19 18:13 | disposition home or self-care (01) ==
LOC: JER 16:36 → JERFT 16:36 → JERBED 20:57 → J4W 12-19 00:53
PROVIDERS: ADMIT Internal Medicine; ATTEND Family Medicine
PROC: 3E033NZ Introduction of Analgesics, Hypnotics, Sedatives into Peripheral Vein, Percutaneous Approach (ICD-10-PCS; principal; 2022-12-18)
PROC: 3E033GC Introduction of Other Therapeutic Substance into Peripheral Vein, Percutaneous Approach (ICD-10-PCS; 2022-12-18)
PROC: 3E013VG Introduction of Insulin into Subcutaneous Tissue, Percutaneous Approach (ICD-10-PCS; 2022-12-18)
DX: I50.33 Acute on chronic diastolic (congestive) heart failure (principal); J44.9 Chronic obstructive pulmonary disease, unspecified; I11.0 Hypertensive heart disease with heart failure; M06.9 Rheumatoid arthritis, unspecified; E11.9 Type 2 diabetes mellitus without complications; E78.5 Hyperlipidemia, unspecified; Z91.148 Patient's other noncompliance with medication regimen for other reason; M25.562 Pain in left knee; Z99.81 Dependence on supplemental oxygen; Z87.891 Personal history of nicotine dependence; Z88.2 Allergy status to sulfonamides
CPT/HCPCS: 36415; 71045-TC-FY; 73564-TC-RT-FY; 80048; 80053; 81003; 82962; 83735; 83880; 84100; 84443; 84484; 85025; 85610; 85730; 87086; 87186; 93005; 93010; 93306-TC; 96372; 96374; 96375; 96376; 97116-GP; 97162-GP; 99285-25; G0378

== ENCOUNTER 2023-05-16 11:32 | Inpatient (IN) | payer OTHER, MEDICARE ==
[2023-05-16 11:57] VITALS: BMI 43.0
[2023-05-16] MEDS ORDERED: FUROSEMIDE 40 MG/4 ML INJECTABLE VIAL IVPUSH ONE (12:15)
[2023-05-16] MEDS ORDERED: ONDANSETRON 4 MG/2 ML VIAL ONE (12:18)
[2023-05-16] MEDS ORDERED: FUROSEMIDE 40 MG/4 ML INJECTABLE VIAL ONE (12:18)
[2023-05-16] MEDS ORDERED: NITROGLYCERIN SUBLINGUAL 1/150 0.4 MG TAB SL ONE (12:21)
[2023-05-16] MEDS: ALBUTEROL SO4 2.5/IPRATROPIUM 0.5 INH SOL 3 ML VIAL.NEB. NEB SCH ×2 (12:22→12:23)
[2023-05-16] MEDS ORDERED: NITROGLYCERIN SUBLINGUAL 1/150 0.4 MG TAB ONE (12:24)
[2023-05-16 12:44] LABS: VENOUS BASE EXCESS 3.1 mmol/L (-2-2); VENOUS O2 SATURATION 26.1 % (70-80); VENOUS PH 7.231 (7.310-7.410)
[2023-05-16 12:48] LABS: VENOUS PCO2 81.8 mmHg (38-52)
[2023-05-16 12:53] LABS: BASO % 0.4 % (0-2.0); EOS % 2.7 % (0-4.5); HEMATOCRIT 40.8 % (32.4-45.2); HEMOGLOBIN 13.9 GM/dL (10.7-15.3); LYMPH % 9.6 % (8-40); MCH 31.2 pg (25.7-33.7); MCHC 34.1 g/dl (32.0-36.0); MEAN CELL VOLUME 91.5 fl (80-96); MEAN PLT VOLUME 9.2 fl (7.5-11.1); MONO % 5.3 % (3.8-10.2); PLATELET COUNT 197 10^3/uL (134-434); RBC 4.46 M/mm3 (3.60-5.2); RDW 13.3 % (11.6-15.6); WHITE BLOOD COUNT 10.9 K/mm3 (4.0-10.0)
[2023-05-16 13:01] LABS: INR 0.96 (0.83-1.09); PROTHROMBIN TIME (PATIENT) 11.1 SEC (9.7-13.0)
[2023-05-16 13:04] LABS: ACTIVATED PTT 36.2 SECONDS (25.2-36.5)
[2023-05-16 13:20] LABS: POTASSIUM 4.1 mmol/L (3.5-5.1)
[2023-05-16 13:23] LABS: CALCIUM 9.7 mg/dL (8.5-10.1)
[2023-05-16 13:24] LABS: ALBUMIN 3.8 g/dl (3.4-5.0); BLOOD UREA NITROGEN 19.3 mg/dL (7-18)
[2023-05-16 13:26] LABS: CREATININE 0.9 mg/dL (0.55-1.3)
[2023-05-16 13:28] LABS: BILIRUBIN,TOTAL 0.6 mg/dL (0.2-1); TOT PROT 8.1 g/dl (6.4-8.2)
[2023-05-16 13:31] LABS: N-TERMINAL BNP 209.5 pg/ml (5-450)
[2023-05-16 14:13] LABS: VENOUS BASE EXCESS 2.4 mmol/L (-2-2); VENOUS O2 SATURATION 54.9 % (70-80); VENOUS PCO2 68.5 mmHg (38-52); VENOUS PH 7.276 (7.310-7.410)
[2023-05-16] MEDS ORDERED: ALBUTEROL SO4 HFA INHALER IH PRN (19:33)
[2023-05-16] MEDS ORDERED: methylPREDNISolone NA SUCC 40 MG/1 ML VIAL ONE (19:53)
[2023-05-16] MEDS: methylPREDNISolone NA SUCC 125 MG/2 ML VIAL IVPB SCH (19:56)
[2023-05-16] MEDS ORDERED: INSULIN (LEVEMIR) 100 UNITS/ML UNITS SQ SCH (22:00)
[2023-05-16] MEDS ORDERED: ACETAMINOPHEN 325 MG TABLET (FP) PO ONE (23:17)
[2023-05-16] MEDS: BUDESONIDE/FORMETEROL FUMARATE 160/4.5 mcg INHALER IH SCH (23:34)
[2023-05-16] MEDS: ROSUVASTATIN CA 20 MG TABLET PO SCH (23:36)
[2023-05-17] MEDS ORDERED: INSULIN (LEVEMIR) 100 UNITS/ML UNITS SQ SCH ×2 (00:30→07:00)
[2023-05-17] MEDS: methylPREDNISolone NA SUCC 125 MG/2 ML VIAL IVPB SCH ×3 (04:30→21:09)
[2023-05-17] MEDS: INSULIN ASPART SLIDING SCALE (NOVOLOG) 1 VIAL SQ SCH ×4 (06:16→21:09)
[2023-05-17] MEDS: LEVOTHYROXINE NA 75 MCG TABLET (FP) PO SCH (06:16)
[2023-05-17 07:40] LABS: BASO % 0.3 % (0-2.0); EOS % 0.1 % (0-4.5); HEMATOCRIT 35.3 % (32.4-45.2); HEMOGLOBIN 12.1 GM/dL (10.7-15.3); LYMPH % 9.6 % (8-40); MCH 31.7 pg (25.7-33.7); MCHC 34.2 g/dl (32.0-36.0); MEAN CELL VOLUME 92.7 fl (80-96); MEAN PLT VOLUME 10.3 fl (7.5-11.1); MONO % 0.8 % (3.8-10.2); NEUT % 89.2 % (42.8-82.8); PLATELET COUNT 175 10^3/uL (134-434); RBC 3.81 M/mm3 (3.60-5.2); RDW 13.5 % (11.6-15.6)
[2023-05-17 07:58] LABS: CHLORIDE 96 mmol/L (98-107); POTASSIUM 4.6 mmol/L (3.5-5.1); SODIUM 133 mmol/L (136-145)
[2023-05-17 08:01] LABS: ALBUMIN 3.2 g/dl (3.4-5.0); ANION GAP 6 mmol/L (4-13); BLOOD UREA NITROGEN 25.7 mg/dL (7-18); CO2 31 mmol/L (21-32); MAGNESIUM 2.1 mg/dL (1.8-2.4)
[2023-05-17 08:04] LABS: BILIRUBIN,TOTAL 0.6 mg/dL (0.2-1); PHOSPHOROUS 3.8 mg/dL (2.5-4.9); SGOT/AST 13 U/L (15-37); SGPT/ALT 19 U/L (13-61)
[2023-05-17 08:06] LABS: TOT PROT 6.9 g/dl (6.4-8.2)
[2023-05-17 08:17] LABS: ALK PHOS 120 U/L (45-117); GLUCOSE,RANDOM 438 mg/dL (74-106)
[2023-05-17] MEDS: LISINOPRIL 20 MG TABLET PO SCH (10:57)
[2023-05-17] MEDS: POTASSIUM CHLORIDE TABS 10 MEQ TABLET.ER (FP) PO SCH (10:57)
[2023-05-17] MEDS: ASPIRIN 81 MG CHEWABLE TABLETS PO SCH (10:57)
[2023-05-17] MEDS: metoPROLOL SUCCINATE 25 MG TAB.SR.24H (FP) PO SCH (10:57)
[2023-05-17] MEDS: DOXYCYCLINE INJECTION 100 MG in DEXTROSE 5%-WATER 100 ML IVPB SCH ×2 (10:57→21:11)
[2023-05-17] MEDS: FUROSEMIDE 40 MG/4 ML INJECTABLE VIAL IVPUSH SCH (10:57)
[2023-05-17] MEDS: BUDESONIDE/FORMETEROL FUMARATE 160/4.5 mcg INHALER IH SCH ×2 (10:58→21:11)
[2023-05-17] MEDS ORDERED: INSULIN (NOVOLOG) ASPART 100 UNITS/ML 10ML VIAL SQ SCH (16:30)
[2023-05-17 19:27] LABS: EPI CELLS 2 /uL (0-25.1); HYALINE CASTS 0 /uL (0-3.1); PH,URINE 5.5 (5.0-8.0); URINE APPEARANCE CLOUDY; URINE BACTERIA >9,000 /uL (0-1359); URINE BILIRUBIN NEGATIVE (NEGATIVE); URINE COLOR YELLOW; URINE GLUCOSE (UA) 3+ (NEGATIVE); URINE KETONE NEGATIVE (NEGATIVE); URINE LEUK ESTERASE 3+ (NEGATIVE); URINE NITRITE POSITIVE (NEGATIVE); URINE PROTEIN NEGATIVE (NEGATIVE); URINE RBC 9 /uL (0-23.9); URINE UROBILINOGEN 0.2 mg/dL (0.2-1.0); URINE WBC 541 /uL (0-25.8)
[2023-05-17] MEDS: ROSUVASTATIN CA 20 MG TABLET PO SCH (21:09)
[2023-05-18] MEDS: methylPREDNISolone NA SUCC 125 MG/2 ML VIAL IVPB SCH (04:40)
[2023-05-18] MEDS: INSULIN ASPART SLIDING SCALE (NOVOLOG) 1 VIAL SQ SCH ×3 (06:34→17:05)
[2023-05-18] MEDS: INSULIN (NOVOLOG MIX 70/30) 100 UNITS/ML MDV SQ SCH ×2 (06:37→17:17)
[2023-05-18] MEDS: LEVOTHYROXINE NA 75 MCG TABLET (FP) PO SCH (06:38)
[2023-05-18] MEDS ORDERED: INSULIN (NOVOLOG) ASPART 100 UNITS/ML 10ML VIAL SQ SCH (07:00)
[2023-05-18] MEDS ORDERED: ACETAMINOPHEN 325 MG TABLET (FP) PO ONE (07:15)
[2023-05-18] MEDS ORDERED: methylPREDNISolone NA SUCC 125 MG/2 ML VIAL IVPB SCH (10:00)
[2023-05-18] MEDS ORDERED: methylPREDNISolone NA SUCC 40 MG/1 ML VIAL IVPB SCH (10:00)
[2023-05-18] MEDS: LISINOPRIL 20 MG TABLET PO SCH (10:08)
[2023-05-18] MEDS: FUROSEMIDE 40 MG/4 ML INJECTABLE VIAL IVPUSH SCH (10:08)
[2023-05-18] MEDS: DOXYCYCLINE INJECTION 100 MG in DEXTROSE 5%-WATER 100 ML IVPB SCH (10:08)
[2023-05-18] MEDS: metoPROLOL SUCCINATE 25 MG TAB.SR.24H (FP) PO SCH (10:09)
[2023-05-18] MEDS: POTASSIUM CHLORIDE TABS 10 MEQ TABLET.ER (FP) PO SCH (10:09)
[2023-05-18] MEDS: ASPIRIN 81 MG CHEWABLE TABLETS PO SCH (10:09)
[2023-05-18] MEDS: BUDESONIDE/FORMETEROL FUMARATE 160/4.5 mcg INHALER IH SCH (10:09)
[2023-05-18 14:21] VITALS: RESP 18
[2023-05-18 17:44] VITALS: BP 121/48; PULSE 56; TEMP 97.9
== END 2023-05-18 19:23 | disposition home or self-care (01) | DRG 291 ==
LOC: JER 11:32 → JERBED 14:30 → J4W 20:32
PROVIDERS: ADMIT Internal Medicine; ATTEND Internal Medicine
DX: I11.0 Hypertensive heart disease with heart failure (principal); I50.33 Acute on chronic diastolic (congestive) heart failure; J96.21 Acute and chronic respiratory failure with hypoxia; J96.22 Acute and chronic respiratory failure with hypercapnia; Z68.41 Body mass index [BMI] 40.0-44.9, adult; J44.1 Chronic obstructive pulmonary disease with (acute) exacerbation; A52.16 Charcot's arthropathy (tabetic); E66.01 Morbid (severe) obesity due to excess calories; N39.0 Urinary tract infection, site not specified; B96.1 Klebsiella pneumoniae [K. pneumoniae] as the cause of diseases classified elsewhere; I25.10 Atherosclerotic heart disease of native coronary artery without angina pectoris; E03.9 Hypothyroidism, unspecified; E78.5 Hyperlipidemia, unspecified; E11.9 Type 2 diabetes mellitus without complications; Z95.5 Presence of coronary angioplasty implant and graft; Z99.81 Dependence on supplemental oxygen
CPT/HCPCS: 0241U-QW; 36415; 71045-TC-FY; 80053; 81003; 82803; 82962; 83036; 83735; 83880; 84100; 84443; 84484; 85025; 85610; 85730; 86140; 87040; 87086; 87186; 93005; 93010; 93306-TC; 94660; 97116-GP; 97162-GP; 99291

== ENCOUNTER 2023-06-14 22:35 | Inpatient (IN) | payer OTHER, MEDICARE ==
[2023-06-14] MEDS ORDERED: ALBUTEROL SO4 2.5/IPRATROPIUM 0.5 INH SOL 3 ML VIAL.NEB. NEB ONE (23:04)
[2023-06-14] MEDS ORDERED: ONDANSETRON 4 MG/2 ML VIAL ONE (23:16)
[2023-06-14] MEDS: ONDANSETRON 4 MG/2 ML VIAL IVPUSH ONE (23:32)
[2023-06-14] MEDS: ACETAMINOPHEN 1000 MG/100 ML BAG IVPB ONE (23:32)
[2023-06-14] MEDS: ALBUTEROL SO4 2.5/IPRATROPIUM 0.5 INH SOL 3 ML VIAL.NEB. NEB ONE (23:32)
[2023-06-14 23:41] LABS: BASO % 0.5 % (0-2.0); EOS % 3.3 % (0-4.5); HEMATOCRIT 36.7 % (32.4-45.2); HEMOGLOBIN 12.7 GM/dL (10.7-15.3); LYMPH % 5.6 % (8-40); MCH 32.1 pg (25.7-33.7); MCHC 34.6 g/dl (32.0-36.0); MEAN CELL VOLUME 92.7 fl (80-96); MEAN PLT VOLUME 8.9 fl (7.5-11.1); NEUT % 84.6 % (42.8-82.8); PLATELET COUNT 209 10^3/uL (134-434); RBC 3.96 M/mm3 (3.60-5.2); RDW 13.7 % (11.6-15.6); WHITE BLOOD COUNT 10.9 K/mm3 (4.0-10.0)
[2023-06-14 23:42] LABS: VENOUS O2 SATURATION 30.1 % (70-80); VENOUS PH 7.281 (7.310-7.410)
[2023-06-14 23:45] LABS: VENOUS PCO2 71.9 mmHg (38-52)
[2023-06-14 23:49] LABS: INR 1.03 (0.83-1.09)
[2023-06-14 23:51] LABS: ACTIVATED PTT 33.8 SECONDS (25.2-36.5)
[2023-06-15 00:02] LABS: CALCIUM 9.8 mg/dL (8.5-10.1)
[2023-06-15 00:03] LABS: ALBUMIN 3.4 g/dl (3.4-5.0); BLOOD UREA NITROGEN 18.7 mg/dL (7-18)
[2023-06-15 00:06] LABS: CREATININE 0.8 mg/dL (0.55-1.3)
[2023-06-15 00:07] LABS: BILIRUBIN,TOTAL 0.6 mg/dL (0.2-1); TOT PROT 7.6 g/dl (6.4-8.2)
[2023-06-15 00:10] LABS: N-TERMINAL BNP 460.1 pg/ml (5-450)
[2023-06-15] MEDS ORDERED: DEXAMETHASONE SOD PHOSPHATE 10 MG/1 ML VIAL ONE (00:41)
[2023-06-15] MEDS: DEXAMETHASONE SOD PHOSPHATE 10 MG/1 ML VIAL IVPUSH ONE (00:47)
[2023-06-15] MEDS: SODIUM CHLORIDE 0.9% 500 ML INFUS.BAG IV ONE ×2 (01:16→02:52)
[2023-06-15 02:34] LABS: EPI CELLS 19 /uL (0-25.1); HYALINE CASTS 2 /uL (0-3.1); URINE APPEARANCE CLOUDY; URINE BACTERIA 1177 /uL (0-1359); URINE BILIRUBIN NEGATIVE (NEGATIVE); URINE COLOR YELLOW; URINE GLUCOSE (UA) 1+ (NEGATIVE); URINE KETONE TRACE (NEGATIVE); URINE LEUK ESTERASE 1+ (NEGATIVE); URINE NITRITE NEGATIVE (NEGATIVE); URINE PROTEIN 3+ (NEGATIVE); URINE RBC 26 /uL (0-23.9); URINE WBC 662 /uL (0-25.8)
[2023-06-15] MEDS ORDERED: CEFTRIAXONE 1 GM/50 ML BAG ONE (03:15)
[2023-06-15] MEDS: CEFTRIAXONE 1 GM in DEXTROSE 5%-WATER - 100 ML IVPB ONE (03:24)
[2023-06-15] MEDS ORDERED: MIDODRINE HCL 5 MG TABLET ONE (04:36)
[2023-06-15] MEDS: MIDODRINE HCL 5 MG TABLET PO ONE (04:41)
[2023-06-15] MEDS ORDERED: AZITHROMYCIN IVPB 500 MG/250 ML BAG IVPB ONE (05:02)
[2023-06-15] MEDS ORDERED: KETOROLAC TROMETHAMINE 15 MG/ML VIAL ONE (05:47)
[2023-06-15] MEDS: AZITHROMYCIN IVPB 500 MG in DEXTROSE 5%-WATER - 250 ML IVPB ONE (06:14)
[2023-06-15] MEDS: KETOROLAC TROMETHAMINE 15 MG/ML VIAL IVPUSH ONE (06:14)
[2023-06-15] MEDS: ACETAMINOPHEN 325 MG TABLET (FP) PO PRN (06:54)
[2023-06-15] MEDS: ONDANSETRON 4 MG/2 ML VIAL IVPUSH ONE (07:43)
[2023-06-15] MEDS ORDERED: LEVOTHYROXINE NA 75 MCG TABLET (FP) ONE (07:44)
[2023-06-15] MEDS ORDERED: INSULIN (NOVOLOG) ASPART 100 UNITS/ML 10ML VIAL ONE ×3 (07:45→16:45)
[2023-06-15] MEDS: INSULIN ASPART SLIDING SCALE (NOVOLOG) 1 VIAL SQ SCH ×2 (07:52→22:02)
[2023-06-15] MEDS: LEVOTHYROXINE NA 75 MCG TABLET (FP) PO SCH (07:53)
[2023-06-15] MEDS ORDERED: ALBUTEROL SO4 2.5/IPRATROPIUM 0.5 INH SOL 3 ML VIAL.NEB. NEB ONE ×3 (08:59→21:53)
[2023-06-15] MEDS: ALBUTEROL SO4 2.5/IPRATROPIUM 0.5 INH SOL 3 ML VIAL.NEB. NEB SCH (09:08)
[2023-06-15] MEDS ORDERED: INSULIN (LEVEMIR) 100 UNITS/ML UNITS SQ ONE ×2 (10:24→21:54)
[2023-06-15] MEDS: INSULIN (LEVEMIR) 100 UNITS/ML UNITS SQ SCH (10:33)
[2023-06-15] MEDS: BUDESONIDE/FORMETEROL FUMARATE 160/4.5 mcg INHALER IH SCH (10:34)
[2023-06-15] MEDS: VANCOMYCIN PREMIX 1.5 GM 1,500 MG/300 ML BAG IVPB SCH (10:34)
[2023-06-15] MEDS: INSULIN REGULAR HUMAN 100 UNITS/ML *VIAL SQ ONE (12:06)
[2023-06-15] MEDS ORDERED: PIPERACILLIN/TAZOB 4.5 GM 4.5 GM/100 ML BAG IVPB ONE (15:03)
[2023-06-15] MEDS: PIPERACILLIN/TAZOB 4.5 GM 4.5 GM in DEXTROSE 5%-WATER 100 ML IVPB SCH ×2 (15:10→17:07)
[2023-06-15 15:44] LABS: CHLORIDE 97 mmol/L (98-107); POTASSIUM 4.6 mmol/L (3.5-5.1); SODIUM 133 mmol/L (136-145)
[2023-06-15 15:45] LABS: ANION GAP 9 mmol/L (4-13); CO2 27 mmol/L (21-32)
[2023-06-15 15:46] LABS: BLOOD UREA NITROGEN 29.1 mg/dL (7-18)
[2023-06-15 15:49] LABS: CREATININE 1.3 mg/dL (0.55-1.3)
[2023-06-15 15:51] LABS: GLUCOSE,RANDOM 513 mg/dL (74-106)
[2023-06-15] MEDS: INSULIN (NOVOLOG) ASPART 100 UNITS/ML 10ML VIAL SQ ONE (16:57)
[2023-06-15] MEDS: VANCOMYCIN HCL 1,500 MG in DEXTROSE 5%-WATER - 500 ML IVPB SCH (17:07)
[2023-06-15] MEDS ORDERED: ROSUVASTATIN CA 20 MG TABLET ONE (21:53)
[2023-06-15] MEDS ORDERED: ACETAMINOPHEN 325 MG TABLET (FP) ONE (21:53)
[2023-06-15] MEDS: ROSUVASTATIN CA 20 MG TABLET PO SCH (22:02)
[2023-06-16] MEDS: IBUPROFEN 400 MG TABLET (FP) PO ONE (00:02)
[2023-06-16] MEDS: SODIUM CHLORIDE 500 ML IV STA (00:03)
[2023-06-16] MEDS ORDERED: INSULIN (NOVOLOG) ASPART 100 UNITS/ML 10ML VIAL ONE (08:00)
[2023-06-16] MEDS ORDERED: ALBUTEROL SO4 2.5/IPRATROPIUM 0.5 INH SOL 3 ML VIAL.NEB. NEB ONE (08:06)
[2023-06-16] MEDS ORDERED: CEFTRIAXONE 1 GM/50 ML BAG ONE (09:13)
[2023-06-16] MEDS: CEFTRIAXONE 1 GM in DEXTROSE 5%-WATER - 50 ML IVPB SCH (09:22)
[2023-06-16] MEDS ORDERED: AZITHROMYCIN IVPB 500 MG/250 ML BAG IVPB SCH (10:00)
[2023-06-16] MEDS ORDERED: CEFTRIAXONE 1 GM in DEXTROSE 5%-WATER - 50 ML IVPB SCH (10:00)
[2023-06-16] MEDS ORDERED: ROSUVASTATIN CA 20 MG TABLET ONE (22:31)
[2023-06-17] MEDS ORDERED: ACETAMINOPHEN 325 MG TABLET (FP) ONE (05:26)
[2023-06-17] MEDS ORDERED: LEVOTHYROXINE NA 75 MCG TABLET (FP) ONE (05:26)
[2023-06-17] MEDS: BISMUTH SUBSALICYLATE 262 MG/15 ML BTL PO ONE (06:52)
[2023-06-17] MEDS ORDERED: ALBUTEROL SO4 2.5/IPRATROPIUM 0.5 INH SOL 3 ML VIAL.NEB. NEB ONE ×2 (07:55→14:09)
[2023-06-17] MEDS ORDERED: CEFTRIAXONE 1 GM/50 ML BAG ONE (09:50)
[2023-06-17] MEDS ORDERED: POLYETHYLENE GLYCOL (HEALTHYLAX) 3350 17 GM PACKET ONE (16:30)
[2023-06-17] MEDS: POLYETHYLENE GLYCOL (HEALTHYLAX) 3350 17 GM PACKET PO SCH (18:01)
[2023-06-17] MEDS: INSULIN (LEVEMIR) 100 UNITS/ML UNITS SQ SCH (22:17)
[2023-06-17] MEDS: MELATONIN 5 MG TABLETS PO PRN (22:18)
[2023-06-17 23:38] VITALS: BMI 39.4
[2023-06-18] MEDS ORDERED: INSULIN (NOVOLOG) ASPART 100 UNITS/ML 10ML VIAL ONE ×2 (06:39→07:00)
[2023-06-18] MEDS: INSULIN ASPART SLIDING SCALE (NOVOLOG) 1 VIAL SQ SCH (06:42)
[2023-06-18] MEDS: LEVOTHYROXINE NA 75 MCG TABLET (FP) PO SCH (06:43)
[2023-06-18] MEDS ORDERED: INSULIN (LEVEMIR) 100 UNITS/ML UNITS SQ ONE (07:00)
[2023-06-18 08:49] LABS: BASO % 0.8 % (0-2.0); EOS % 6.8 % (0-4.5); HEMATOCRIT 30.2 % (32.4-45.2); HEMOGLOBIN 10.4 GM/dL (10.7-15.3); LYMPH % 31.9 % (8-40); MCH 31.7 pg (25.7-33.7); MCHC 34.5 g/dl (32.0-36.0); MEAN PLT VOLUME 8.8 fl (7.5-11.1); MONO % 8.9 % (3.8-10.2); NEUT % 51.6 % (42.8-82.8); PLATELET COUNT 204 10^3/uL (134-434); RBC 3.28 M/mm3 (3.60-5.2); RDW 13.8 % (11.6-15.6); WHITE BLOOD COUNT 6.4 K/mm3 (4.0-10.0)
[2023-06-18 09:11] LABS: POTASSIUM 4.2 mmol/L (3.5-5.1)
[2023-06-18 09:17] LABS: BLOOD UREA NITROGEN 19.4 mg/dL (7-18); CALCIUM 9.3 mg/dL (8.5-10.1)
[2023-06-18 09:19] LABS: CREATININE 0.6 mg/dL (0.55-1.3)
[2023-06-18 09:20] LABS: BILIRUBIN,TOTAL 0.3 mg/dL (0.2-1); TOT PROT 5.7 g/dl (6.4-8.2)
[2023-06-18 09:26] LABS: ALBUMIN 2.7 g/dl (3.4-5.0)
[2023-06-18] MEDS: POLYETHYLENE GLYCOL (HEALTHYLAX) 3350 17 GM PACKET PO SCH ×2 (10:29→22:35)
[2023-06-18] MEDS: CEFTRIAXONE 1 GM in DEXTROSE 5%-WATER - 50 ML IVPB SCH (10:30)
[2023-06-18] MEDS: BUDESONIDE/FORMETEROL FUMARATE 160/4.5 mcg INHALER IH SCH (11:12)
[2023-06-18] MEDS: ALBUTEROL SO4 2.5/IPRATROPIUM 0.5 INH SOL 3 ML VIAL.NEB. NEB SCH (20:05)
[2023-06-18] MEDS: ROSUVASTATIN CA 20 MG TABLET PO SCH (22:35)
[2023-06-19] MEDS: ACETAMINOPHEN 325 MG TABLET (FP) PO PRN (00:58)
[2023-06-19] MEDS: MELATONIN 5 MG TABLETS PO PRN (00:58)
[2023-06-19] MEDS: CLOTRIMAZOLE 1% CREAM TP SCH (12:49)
[2023-06-19] MEDS: FUROSEMIDE 40 MG TABLET (FP) PO SCH (14:00)
[2023-06-19] MEDS: GABAPENTIN 300 MG CAPSULE PO SCH (23:30)
[2023-06-19] MEDS: INSULIN ASPART SLIDING SCALE (NOVOLOG) 1 VIAL SQ SCH (23:49)
[2023-06-19] MEDS: INSULIN (LEVEMIR) 100 UNITS/ML UNITS SQ SCH (23:49)
[2023-06-20] MEDS: FUROSEMIDE 40 MG/4 ML INJECTABLE VIAL IVPUSH ONE (10:18)
[2023-06-20] MEDS: FUROSEMIDE 40 MG/4 ML INJECTABLE VIAL IVPUSH SCH (10:51)
[2023-06-20] MEDS ORDERED: INSULIN (NOVOLOG) ASPART 100 UNITS/ML 10ML VIAL ONE ×3 (12:08→21:24)
[2023-06-21 08:50] VITALS: BP 125/82; PULSE 72; RESP 20; TEMP 97.7
[2023-06-21] MEDS ORDERED: INSULIN (NOVOLOG) ASPART 100 UNITS/ML 10ML VIAL ONE (11:34)
== END 2023-06-21 12:35 | DRG 871 ==
LOC: JER 22:35 → JERBED 06-15 02:53 → J8W 06-17 22:05
PROVIDERS: ADMIT Family Medicine; ATTEND Family Medicine
DX: A41.9 Sepsis, unspecified organism (principal); J96.21 Acute and chronic respiratory failure with hypoxia; J96.22 Acute and chronic respiratory failure with hypercapnia; N39.0 Urinary tract infection, site not specified; I50.32 Chronic diastolic (congestive) heart failure; E87.29 Other acidosis; A52.16 Charcot's arthropathy (tabetic); J44.1 Chronic obstructive pulmonary disease with (acute) exacerbation; I24.89 Other forms of acute ischemic heart disease; E78.5 Hyperlipidemia, unspecified; E03.9 Hypothyroidism, unspecified; I10 Essential (primary) hypertension; I25.10 Atherosclerotic heart disease of native coronary artery without angina pectoris; E11.9 Type 2 diabetes mellitus without complications; N31.9 Neuromuscular dysfunction of bladder, unspecified; E66.9 Obesity, unspecified; Z68.37 Body mass index [BMI] 37.0-37.9, adult
CPT/HCPCS: 0241U-QW; 36415; 71045-TC-FY; 80048; 80053; 81003; 82010; 82803; 82962; 83036; 83605; 83880; 84443; 84484; 85025; 85610; 85730; 87040; 87086; 87186; 87635; 93005; 93010; 93970-TC; 94640; 94660; 97116-GP; 99285-25; J0131; J1100

== ENCOUNTER 2023-09-12 15:40 | Inpatient (IN) | payer OTHER, MEDICARE ==
[2023-09-12] MEDS ORDERED: ACETAMINOPHEN INJECTION 100 ML IVPB ONE (17:12)
[2023-09-12 17:57] LABS: EOS % 0.5 % (0-4.5); HEMATOCRIT 32.6 % (32.4-45.2); HEMOGLOBIN 11.1 GM/dL (10.7-15.3); LYMPH % 19.3 % (8-40); MCH 31.5 pg (25.7-33.7); MEAN CELL VOLUME 92.7 fl (80-96); MEAN PLT VOLUME 9.4 fl (7.5-11.1); MONO % 14.1 % (3.8-10.2); NEUT % 65.1 % (42.8-82.8); PLATELET COUNT 163 10^3/uL (134-434); RBC 3.52 M/mm3 (3.60-5.2); RDW 13.5 % (11.6-15.6)
[2023-09-12 18:01] LABS: VENOUS BASE EXCESS 3.2 mmol/L (-2-2); VENOUS O2 SATURATION 28.4 % (70-80); VENOUS PCO2 56.6 mmHg (38-52); VENOUS PH 7.342 (7.310-7.410)
[2023-09-12] MEDS: ACETAMINOPHEN 1000 MG/100 ML BAG IVPB ONE (18:02)
[2023-09-12] MEDS ORDERED: ALBUTEROL SO4 2.5/IPRATROPIUM 0.5 INH SOL 3 ML VIAL.NEB. NEB ONE (18:11)
[2023-09-12] MEDS ORDERED: PIPERACILLIN/TAZOB 4.5 GM 4.5 GM/100 ML BAG IVPB ONE (18:11)
[2023-09-12] MEDS ORDERED: VANCOMYCIN 1 GRAM (PRE-DOCKED) 1,000 MG/250 ML BAG IVPB ONE (18:12)
[2023-09-12 18:21] LABS: POTASSIUM 3.7 mmol/L (3.5-5.1)
[2023-09-12 18:23] LABS: BLOOD UREA NITROGEN 21.4 mg/dL (7-18); CALCIUM 9.2 mg/dL (8.5-10.1)
[2023-09-12 18:24] LABS: ALBUMIN 3.3 g/dl (3.4-5.0)
[2023-09-12 18:27] LABS: PHOSPHOROUS 3.1 mg/dL (2.5-4.9)
[2023-09-12 18:28] LABS: BILIRUBIN,TOTAL 0.6 mg/dL (0.2-1); TOT PROT 6.6 g/dl (6.4-8.2)
[2023-09-12 18:32] LABS: N-TERMINAL BNP 639.7 pg/ml (5-450)
[2023-09-12 18:49] LABS: INR 1.08 (0.83-1.09); PROTHROMBIN TIME (PATIENT) 12.2 SEC (9.7-13.0)
[2023-09-12] MEDS: SODIUM CHLORIDE 0.9% 500 ML INFUS.BAG IV ONE ×2 (18:50→20:43)
[2023-09-12] MEDS: ALBUTEROL SO4 2.5/IPRATROPIUM 0.5 INH SOL 3 ML VIAL.NEB. NEB SCH ×2 (18:51→21:05)
[2023-09-12] MEDS: PIPERACILLIN/TAZOBACTAM 4.5 GM VIAL IVPB ONE (18:51)
[2023-09-12 18:52] LABS: ACTIVATED PTT 34.3 SECONDS (25.2-36.5)
[2023-09-12] MEDS: VANCOMYCIN 1,000 MG in DEXTROSE 5%-WATER - 250 ML IVPB ONE (19:43)
[2023-09-12 21:56] LABS: EPI CELLS 17 /uL (0-25.1); HYALINE CASTS 2 /uL (0-3.1); URINE APPEARANCE CLEAR; URINE BACTERIA 9 /uL (0-1359); URINE BILIRUBIN NEGATIVE (NEGATIVE); URINE COLOR YELLOW; URINE GLUCOSE (UA) NEGATIVE (NEGATIVE); URINE KETONE NEGATIVE (NEGATIVE); URINE LEUK ESTERASE 2+ (NEGATIVE); URINE NITRITE NEGATIVE (NEGATIVE); URINE PROTEIN TRACE (NEGATIVE); URINE RBC 7 /uL (0-23.9); URINE UROBILINOGEN 0.2 mg/dL (0.2-1.0); URINE WBC 67 /uL (0-25.8)
[2023-09-12] MEDS ORDERED: ALBUTEROL SO4 0.083% IH SOL 2.5 MG/3 ML VIAL.NEB. NEB PRN (23:14)
[2023-09-12] MEDS ORDERED: SODIUM CHLORIDE 1,000 ML IV SCH (23:15)
[2023-09-12] MEDS ORDERED: ALBUTEROL SO4 2.5/IPRATROPIUM 0.5 INH SOL 3 ML VIAL.NEB. NEB PRN (23:21)
[2023-09-12] MEDS ORDERED: methylPREDNISolone NA SUCC 40 MG/1 ML VIAL ONE (23:26)
[2023-09-12] MEDS: methylPREDNISolone NA SUCC 40 MG/1 ML VIAL IVPUSH SCH (23:31)
[2023-09-13 01:36] VITALS: BMI 39.9
[2023-09-13] MEDS: ACETAMINOPHEN 325 MG TABLET (FP) PO PRN (05:28)
[2023-09-13 05:32] LABS: ARTERIAL BLD GAS O2 SATURATION 87.8 % (95-98); ARTERIAL BLOOD GAS BASE EXCESS -3.4 mmol/L (-2-2)
[2023-09-13] MEDS: INSULIN ASPART SLIDING SCALE (NOVOLOG) 1 VIAL SQ SCH (06:03)
[2023-09-13 06:30] LABS: MAGNESIUM 1.9 mg/dL (1.8-2.4)
[2023-09-13 06:34] LABS: PHOSPHOROUS 3.6 mg/dL (2.5-4.9)
[2023-09-13] MEDS: CEFTRIAXONE 1 GM in DEXTROSE 5%-WATER - 50 ML IVPB SCH (10:01)
[2023-09-13] MEDS: AZITHROMYCIN IVPB 500 MG/250 ML BAG IVPB SCH (10:01)
[2023-09-13] MEDS: ENOXAPARIN NA (PORCINE) 40 MG/0.4 ML DISP.SYRIN SQ SCH (10:01)
[2023-09-13] MEDS: REMDESIVIR 200 MG in SODIUM CHLORIDE 250 ML IVPB ONE (12:58)
[2023-09-13] MEDS: FUROSEMIDE 40 MG TABLET (FP) PO SCH (15:01)
[2023-09-13] MEDS: SODIUM CHLORIDE NASAL SPRAY 44 ML BOTTLE NS PRN (15:01)
[2023-09-13] MEDS: BUDESONIDE/FORMETEROL FUMARATE 160/4.5 mcg INHALER IH SCH (15:01)
[2023-09-13 15:34] LABS: HEMATOCRIT 30.5 % (32.4-45.2); HEMOGLOBIN 10.2 GM/dL (10.7-15.3); MCH 31.6 pg (25.7-33.7); MCHC 33.4 g/dl (32.0-36.0); MEAN CELL VOLUME 94.7 fl (80-96); MEAN PLT VOLUME 11.1 fl (7.5-11.1); PLATELET COUNT 146 10^3/uL (134-434); RBC 3.22 M/mm3 (3.60-5.2); RDW 14.5 % (11.6-15.6); WHITE BLOOD COUNT 6.7 K/mm3 (4.0-10.0)
[2023-09-13 15:41] LABS: POTASSIUM 3.9 mmol/L (3.5-5.1)
[2023-09-13 15:43] LABS: ALBUMIN 3.2 g/dl (3.4-5.0); CALCIUM 8.9 mg/dL (8.5-10.1)
[2023-09-13 15:44] LABS: BLOOD UREA NITROGEN 18.9 mg/dL (7-18)
[2023-09-13 15:48] LABS: BILIRUBIN,TOTAL 0.5 mg/dL (0.2-1); TOT PROT 6.3 g/dl (6.4-8.2)
[2023-09-13 16:07] LABS: ANISOCYTOSIS 0; MACROCYTOSIS 0
[2023-09-13] MEDS: methylPREDNISolone NA SUCC 40 MG/1 ML VIAL IVPUSH SCH (17:23)
[2023-09-13] MEDS: ROSUVASTATIN CA 20 MG TABLET PO SCH (21:30)
[2023-09-14] MEDS: LEVOTHYROXINE NA 75 MCG TABLET (FP) PO SCH (06:09)
[2023-09-14] MEDS: INSULIN ASPART SLIDING SCALE (NOVOLOG) 1 VIAL SQ SCH (06:09)
[2023-09-14] MEDS: metoPROLOL SUCCINATE 25 MG TAB.SR.24H (FP) PO SCH (10:31)
[2023-09-14] MEDS: EZETIMIBE 10 MG TABLET (FP) PO SCH (10:31)
[2023-09-14] MEDS: LISINOPRIL 20 MG TABLET PO SCH (10:31)
[2023-09-14] MEDS: PANTOPRAZOLE 40 MG TABLET PO SCH (10:31)
[2023-09-14] MEDS: INSULIN (LEVEMIR) 100 UNITS/ML UNITS SQ SCH (10:32)
[2023-09-14] MEDS: ASPIRIN 81 MG CHEWABLE TABLETS PO SCH (10:32)
[2023-09-14] MEDS: REMDESIVIR 100 MG in SODIUM CHLORIDE 250 ML IVPB SCH (12:03)
[2023-09-14] MEDS: DOXYCYCLINE HYCLATE 100 MG CAPSULE PO SCH (17:32)
[2023-09-15 09:51] LABS: BASO % 0.1 % (0-2.0); HEMATOCRIT 33.4 % (32.4-45.2); HEMOGLOBIN 11.4 GM/dL (10.7-15.3); LYMPH % 14.4 % (8-40); MCH 31.5 pg (25.7-33.7); MCHC 34.1 g/dl (32.0-36.0); MEAN CELL VOLUME 92.5 fl (80-96); MEAN PLT VOLUME 9.8 fl (7.5-11.1); MONO % 4.6 % (3.8-10.2); NEUT % 80.9 % (42.8-82.8); PLATELET COUNT 175 10^3/uL (134-434); RBC 3.61 M/mm3 (3.60-5.2); RDW 13.4 % (11.6-15.6); WHITE BLOOD COUNT 8.2 K/mm3 (4.0-10.0)
[2023-09-15 09:59] LABS: POTASSIUM 3.7 mmol/L (3.5-5.1)
[2023-09-15 10:08] LABS: BLOOD UREA NITROGEN 28.1 mg/dL (7-18); CALCIUM 9.1 mg/dL (8.5-10.1)
[2023-09-15 10:09] LABS: ALBUMIN 3.1 g/dl (3.4-5.0)
[2023-09-15 10:11] LABS: CREATININE 0.9 mg/dL (0.55-1.3)
[2023-09-15 10:12] LABS: BILIRUBIN,TOTAL 0.3 mg/dL (0.2-1)
[2023-09-15 10:13] LABS: TOT PROT 6.4 g/dl (6.4-8.2)
[2023-09-15 11:28] LABS: ERYTHROCYTE SEDIMENTATION RATE 35 mm/hr (0-30)
[2023-09-15] MEDS: INSULIN (LEVEMIR) 100 UNITS/ML UNITS SQ SCH (21:03)
[2023-09-16] MEDS: methylPREDNISolone NA SUCC 40 MG/1 ML VIAL IVPUSH SCH (11:04)
[2023-09-16 11:41] LABS: BASO % 0.4 % (0-2.0); EOS % 0.2 % (0-4.5); HEMATOCRIT 33.7 % (32.4-45.2); HEMOGLOBIN 11.4 GM/dL (10.7-15.3); LYMPH % 24.9 % (8-40); MCHC 33.8 g/dl (32.0-36.0); MONO % 9.6 % (3.8-10.2); NEUT % 64.9 % (42.8-82.8); RBC 3.67 M/mm3 (3.60-5.2); RDW 13.4 % (11.6-15.6); WHITE BLOOD COUNT 11.7 K/mm3 (4.0-10.0)
[2023-09-16 11:49] LABS: POTASSIUM 3.3 mmol/L (3.5-5.1)
[2023-09-16 11:50] LABS: CALCIUM 8.9 mg/dL (8.5-10.1)
[2023-09-16 11:51] LABS: BLOOD UREA NITROGEN 32.5 mg/dL (7-18)
[2023-09-16 11:54] LABS: CREATININE 0.8 mg/dL (0.55-1.3)
[2023-09-16 12:05] LABS: PLATELET ESTIMATE SLT DECREASE
[2023-09-16 19:03] VITALS: RESP 18
[2023-09-17 06:58] LABS: BASO % 0.3 % (0-2.0); EOS % 2.3 % (0-4.5); HEMATOCRIT 34.9 % (32.4-45.2); HEMOGLOBIN 12.4 GM/dL (10.7-15.3); LYMPH % 41.6 % (8-40); MCH 32.4 pg (25.7-33.7); MCHC 35.4 g/dl (32.0-36.0); MEAN CELL VOLUME 91.4 fl (80-96); MEAN PLT VOLUME 9.8 fl (7.5-11.1); MONO % 7.4 % (3.8-10.2); NEUT % 48.4 % (42.8-82.8); PLATELET COUNT 178 10^3/uL (134-434); RBC 3.82 M/mm3 (3.60-5.2); RDW 13.4 % (11.6-15.6); WHITE BLOOD COUNT 11.1 K/mm3 (4.0-10.0)
[2023-09-17 07:04] LABS: POTASSIUM 3.5 mmol/L (3.5-5.1)
[2023-09-17 07:07] LABS: CALCIUM 8.9 mg/dL (8.5-10.1)
[2023-09-17 07:08] LABS: BLOOD UREA NITROGEN 39.9 mg/dL (7-18)
[2023-09-17 07:11] LABS: CREATININE 0.9 mg/dL (0.55-1.3)
[2023-09-17] MEDS: DEXAMETHASONE SOD PHOSPHATE 10 MG/1 ML VIAL IVPUSH SCH (10:21)
[2023-09-17 15:22] VITALS: BP 98/53; PULSE 67; TEMP 98.6
== END 2023-09-17 18:47 | disposition home or self-care (01) | DRG 190 ==
LOC: JER 15:40 → JERBED 23:05 → J4S 09-13 00:52
PROVIDERS: ADMIT Internal Medicine; ATTEND Family Medicine
PROC: XW033E5 Introduction of Remdesivir Anti-infective into Peripheral Vein, Percutaneous Approach, New Technology Group 5 (ICD-10-PCS; principal; 2023-09-13)
DX: J44.1 Chronic obstructive pulmonary disease with (acute) exacerbation (principal); U07.1 COVID-19; I50.32 Chronic diastolic (congestive) heart failure; A52.16 Charcot's arthropathy (tabetic); I25.10 Atherosclerotic heart disease of native coronary artery without angina pectoris; E03.9 Hypothyroidism, unspecified; E78.5 Hyperlipidemia, unspecified; E11.65 Type 2 diabetes mellitus with hyperglycemia; G25.81 Restless legs syndrome; E11.40 Type 2 diabetes mellitus with diabetic neuropathy, unspecified; G47.33 Obstructive sleep apnea (adult) (pediatric); E66.9 Obesity, unspecified; Z68.39 Body mass index [BMI] 39.0-39.9, adult; I11.0 Hypertensive heart disease with heart failure; E11.9 Type 2 diabetes mellitus without complications; Z99.81 Dependence on supplemental oxygen; Z95.5 Presence of coronary angioplasty implant and graft
CPT/HCPCS: 0241U-QW; 36415; 36600; 71045-TC-FY; 80048; 80053; 81003; 82803; 82962; 83036; 83605; 83735; 83880; 84100; 84443; 84484; 85025; 85610; 85651; 85730; 86140; 86850; 86900; 86901; 87040; 87070; 87086; 87186; 87205; 93005; 93010; 99285-25; J0131; J0248; J1100